=== PATIENT | male | born 1980 | race Caucasian/White ===

== ENCOUNTER 2021-07-14 15:08 | Outpatient (REF) | payer MEDICARE, MEDICAID, SELFPAY ==
[2021-07-14 16:33] LABS: MANUAL DIFF FLAG NO
[2021-07-14 16:39] LABS: Basophils Absolute Auto 0.1 X10*3/uL (0.0-0.2); Basophils Percent Auto 1.6 % (0-2); Eosinophils Percent Auto 12.1 % (0-4); Hematocrit 42.4 % (42.0-52.0); Hemoglobin 13.8 g/dl (14.0-18.0); Imm Gran Abs Auto 0.02 X10*3/uL (0.00-0.03); Imm Gran Pct Auto 0.2 % (0.0-0.4); Lymphocytes Absolute Auto 1.5 X10*3/uL (1.2-4.9); Mean Corpuscular HGB Conc 32.5 g/dl (31.0-36.0); Mean Corpuscular Hemoglobin 26.5 pg (27.0-33.0); Mean Corpuscular Volume 81.5 fL (80.0-98.0); Mean Platelet Volume 9.9 fL (9.4-12.4); Monocytes Absolute Auto 0.5 X10*3/uL (0.1-1.2); Monocytes Percent Auto 6.5 % (2-11); Neutrophils Percent Auto 61.6 % (45-73); Platelet Count 185 X10*3/uL (160-400); Red Cell Distribution Width 15.5 % (11.0-16.0); White Blood Count 8.1 X10*3/uL (4.8-10.8)
[2021-07-14 17:06] LABS: Alanine Aminotransferase 44 U/L (0-40); Albumin Level 4.6 g/dL (3.5-5.0); Alkaline Phosphatase 93 U/L (39-117); Anion Gap 15 (12-20); Aspartate Amino Transferase 26 U/L (5-37); Bilirubin Total 0.5 mg/dL (0.0-1.0); Blood Urea Nitrogen 17 mg/dL (9-16); Calcium 9.8 mg/dL (8.4-10.2); Carbon Dioxide 26 mmol/L (22-29); Chloride 105 mmol/L (96-108); Cholesterol 232 mg/dL; Estimated Glomerular Filt Rate > 60; Glucose Fasting 94 mg/dL (60-99); HDL Cholesterol 35 mg/dL; LDL Cholesterol Calculated 148 mg/dl; Potassium 4.4 mmol/L (3.3-5.1); Sodium 142 mmol/L (135-145); Total Protein 7.6 g/dL (6.5-8.0); Triglycerides 247 mg/dL
[2021-07-14 17:26] LABS: Vitamin D 25-OH Total 22.7 ng/mL (>30)
== END 2021-07-14 15:09 | disposition home or self-care (01) ==
LOC: HO.HMGCLDS 15:08
PROVIDERS: PCP Internal Medicine; Visit Provider Internal Medicine
DX: E66.01 Morbid (severe) obesity due to excess calories (principal); E55.9 Vitamin D deficiency, unspecified
CPT/HCPCS: 36415; 80053; 80061; 82306; 85025

== ENCOUNTER 2022-04-10 10:49 | Outpatient (REF) | payer MEDICARE, MEDICAID, SELFPAY ==
[2022-04-10 14:05] LABS: MANUAL DIFF FLAG NO
[2022-04-10 14:10] LABS: Basophils Absolute Auto 0.1 X10*3/uL (0.0-0.2); Basophils Percent Auto 1.7 % (0-2); Eosinophils Absolute Auto 0.6 X10*3/uL (0.0-0.4); Eosinophils Percent Auto 7.5 % (0-4); Hemoglobin 14.9 g/dl (14.0-18.0); Imm Gran Abs Auto 0.02 X10*3/uL (0.00-0.03); Imm Gran Pct Auto 0.2 % (0.0-0.4); Lymphocytes Absolute Auto 1.8 X10*3/uL (1.2-4.9); Lymphocytes Percent Auto 22.3 % (20-40); Mean Corpuscular HGB Conc 31.7 g/dl (31.0-36.0); Mean Corpuscular Hemoglobin 26.8 pg (27.0-33.0); Mean Corpuscular Volume 84.4 fL (80.0-98.0); Mean Platelet Volume 10.3 fL (9.4-12.4); Monocytes Absolute Auto 0.6 X10*3/uL (0.1-1.2); Monocytes Percent Auto 7.1 % (2-11); Neutrophils Percent Auto 61.2 % (45-73); Platelet Count 227 X10*3/uL (160-400); Red Blood Count 5.57 X10*6/uL (4.60-5.80); Red Cell Distribution Width 14.3 % (11.0-16.0); White Blood Count 8.1 X10*3/uL (4.8-10.8)
[2022-04-10 14:28] LABS: Alanine Aminotransferase 110 U/L (0-40); Alkaline Phosphatase 129 U/L (39-117); Anion Gap 18 (12-20); Aspartate Amino Transferase 61 U/L (5-37); Bilirubin Total 0.6 mg/dL (0.0-1.0); Blood Urea Nitrogen 12 mg/dL (9-16); Calcium 9.8 mg/dL (8.4-10.2); Carbon Dioxide 24 mmol/L (22-29); Chloride 105 mmol/L (96-108); Cholesterol 242 mg/dL; Estimated Glomerular Filt Rate > 60; Glucose Fasting 121 mg/dL (60-99); HDL Cholesterol 40 mg/dL; LDL Cholesterol Calculated 159 mg/dl; Sodium 143 mmol/L (135-145); Total Protein 7.8 g/dL (6.5-8.0); Triglycerides 217 mg/dL
[2022-04-10 14:38] LABS: Vitamin D 25-OH Total 45.2 ng/mL (>30)
== END 2022-04-10 10:50 | disposition home or self-care (01) ==
LOC: HO.HMGCLDS 10:49
PROVIDERS: PCP Internal Medicine; Visit Provider Internal Medicine
DX: E55.9 Vitamin D deficiency, unspecified (principal); E66.01 Morbid (severe) obesity due to excess calories; F43.10 Post-traumatic stress disorder, unspecified; E78.2 Mixed hyperlipidemia
CPT/HCPCS: 36415; 80053; 80061; 82306; 85025

== ENCOUNTER 2023-08-03 11:39 | Outpatient (AMB) | payer MEDICARE, MEDICAID, SELFPAY ==
--- NOTE | 2023-08-03 11:42 | A.OFFPC_ITS ---
Vital Signs 08/03/23 11:43 Height 6 ft 3 in Weight 293 lb BMI 36.6 BP 135/90 H Blood Pressure Location Rt brachial Position Sitting Pulse 100 Pulse Source Pulse Oximeter Pulse Oximetry (%) 97 Oxygen Delivery Method Room Air Intake Visit Reasons: PE and follow up Intake Note: Pt here for annual PE and f/u chronic issues. Allergies environmental allergies Allergy (Intermediate, Verified 08/08/23 20:58) Sneezing Medication List - Last Reconciled 08/03/23 by Ailyn Merlos MD aspirin (Adult Low Dose Aspirin) 81 mg PO DAILY atomoxetine 80 mg PO QAM bupropion HCl SR 100 mg PO QAM [custom liner for above knee prosthesis As directed. custom liner for above knee prosthesis] desonide 0.05% 1 appl topical BID gabapentin 900 mg PO TID Prosthetic socket insert liner, above knee As directed [Right above knee socket As directed NS] sertraline 150 mg PO DAILY Tobacco use date assessed: 08/03/23 Dental Screening Dental Screen Date: 08/03/23 Did you have a dental visit in the last 12 months?: No Did you have a dental problem in the last 6 months where you did not have access to dental care?: No Was dental information given to patient?: No HPI PE and follow up HPI Details 43 year old male presents today for his physical exam. He has history of necrotizing fasciitis right lower extremity in 2019, complicated with septic shock, cardiac arrest ECMO, left leg embolic event with multiple fasciotomies, debridement, embolectomy, requiring AKA on right, with pain in right above the knee amputation stump, currently being followed by [facility] vascular [facility]. Takes gabapentin. His right leg stump has decreased in size, and having some issues with his prosthesis due to the loss of volume in stump, he is interested about a new procedure called osseous integration, which they are now doing in [place]. No current open cuts sores or wounds in right leg stump. He has history of ADD previously was on Ritalin, but unable to tolerate it, states that it made him feel like a zombie now controlled with atomoxeftine, and is on sertraline and bupropion for treatment of his PTSD, currently being followed by Jessica Sotelo and sees a therapist in [place]. Complains of loss of libido and erectile dysfunction. Has a recurrent eczematous rash on lateral aspect of left knee, not improving with use of desonide cream. [facility] Medical History (Updated 08/03/23 @ 12:51 by Ailyn Merlos MD) ADD (attention deficit disorder) Impaired fasting glucose Vitamin D deficiency Mixed dyslipidemia History of necrotizing fasciitis Phantom pain after amputation of lower extremity Open wound of left knee, leg and ankle with tendon involvement Complicated open wound of right thigh Right above-knee amputee History of septic shock PTSD (post-traumatic stress disorder) Morbid obesity Dyshidrotic eczema Surgical History History of fasciotomy Social History Housing: House Patient Tobacco Use Status: Former Tobacco user e-Cigarette/Vaping Use: Never Used service: No Current occupational status: disabled Current occupational exposures/hazards: No Cognitive needs: No Hearing needs: No Vision needs: No Questionnaire PHQ-9 Over the last 2 weeks, how often have you been bothered by any of the following problems? 1. Little interest or pleasure in doing things: several days 2. Feeling down, depressed, or hopeless: several days 3. Trouble falling or staying asleep, or sleeping too much: nearly every day (Due to pain lower extremity) 4. Feeling tired or having little energy: several days 5. Poor appetite or overeating: several days 6. Feeling bad about yourself - or that you are a failure or have let yourself or your family down: several days 7. Trouble concentrating on things, such as reading the newspaper or watching television: nearly every day (Likely due to gabapentin high-dose) 8. Moving or speaking so slowly that other people could have noticed. Or the opposite - being so fidgety or restless that you have been moving around a lot more than usual: not at all 9. Thoughts that you would be better off or of hurting yourself in some way: not at all Total score: 11 Depression Screening Interpretation: Positive (Currently followed by psychiatry and therapist in [place]) Depression Screening Follow-up: Existing condition, In treatment and Community Mental Health Worker F/U Depression Screening Done: Yes 22058 - PHQ-9 Billing: Yes Source: Developed by Drs. Radha Cortes Kurt Kroenke and colleagues, with an educational deshawn from [employer]. Thrive Questionnaire Date Thrive assessed: 08/03/23 I am a: Patient What is your living situation today?: I have a steady place to live Within the past 12 months, did the food you bought not last and you didn't have the money to get more?: Never true Within the past 12 months, did you worry whether your food would run out before you got money to buy more?: Never true Do you have trouble paying for medicines?: No Do you have trouble getting transportation to medical appointments?: No Do you have trouble paying your heating and electricity bill?: No Do you have trouble taking care of your child, family member or friend?: No Do you have trouble with day-to-day activities such as bathing, preparing meals, shopping, managing finances, etc.?: No Are you currently unemployed and looking for a job?: No Are you interested in more education?: No Please select the resources that you would like help with: None Currently or been in a relationship where the following occur: no concerns reported THRIVE Score: 0 AUDIT C Alcohol Use Questionnaire (AUDIT-C) 1. How often do you have a drink containing alcohol?: Never Total Score: 0 SERINA-7 AMB Questionnaire SERINA-7 Date SERINA - 7 assessed: 08/03/23 Feeling nervous, anxious, or on edge: 1 = Several days Not being able to stop or control worryin = Not at all Worrying too much about different things: 1 = Several days Trouble relaxin = Several days Being so restless that it is hard to sit still: 1 = Several days Becoming easily annoyed or irritable: 0 = Not at all Feeling afraid as if something awful might happen: 0 = Not at all Total SERINA-7 score (0-4 normal; 5-9 mild; 10-14 moderate; 15-21 severe): 4 Source: Developed by Drs. Scot Hoff, Pranav Tate and colleagues, with an educational deshawn from [employer]. SERINA-7 Assessment Billing SERINA-7 Assessment Tool: SERINA-7 Assessment 79203 Review of Systems Const Denies body aches, Denies fever(s), Denies headache(s) and Denies weakness Eyes Reports no additional complaints ENT Denies dizziness, Denies headache(s), Denies nasal congestion and Reports disequilibrium (Unsteady gait due to loose right prosthesis) Card Denies chest pain, Denies lightheadedness and Denies dyspnea Resp Denies chest congestion, Denies cough and Denies dyspnea GI Denies abdominal pain, Denies change in bowel habits and Denies heartburn Denies dysuria, Denies urinary frequency and Denies urinary urgency Musc Reports as per HPI Skin/Breast Denies new lesions, Denies rash and Denies sores Neuro Denies dizziness, Denies headache(s), Reports disequilibrium (Unsteady gait due to loose right prosthesis) and Denies weakness Psych Reports as per HPI Endo Reports no additional complaints Elias/Lymph Reports no additional complaints Aller/Immun Reports no additional complaints Physical exam (Primary Care) Vital Signs: Last Vital Signs Pulse 100 08/03/23 11:43 BP 135/90 H 08/03/23 11:43 Pulse Ox 97 08/03/23 11:43 Oxygen Delivery Method Room Air 08/03/23 11:43 BMI result Body Mass Index 36.6 BMI Assessment/Plan discussion: High BMI High, discussed plan: weight reduction, dietary and physical activity Tobacco/Smoking Status: Tobacco use Status Tobacco use date assessed 08/03/23 08/03/23 11:45 Patient Tobacco Use Status Former Tobacco user 08/03/23 11:42 e-Cigarette/Vaping Use Never Used 08/03/23 11:42 PHQ-9: PHQ-9 Score PHQ-9: Total score 11 08/04/23 15:47 Depression Screening Interpretation: Positive (Currently followed by psychiatry and therapist in [place]) Depression Screening Follow-up: Existing condition, In treatment and Community Mental Health Worker F/U Thrive Assessment: Date of Thrive Assessment Date Thrive assessed 08/03/23 08/03/23 11:45 Currently or been in a relationship where the following occur: no concerns reported Const General: comfortable, no acute distress and alert Nutritional Appearance: obese morbidly obese Orientation/consciousness: patient oriented x3 HENMT Mouth: Normal oral and palatal mucosa present and moist mucous membranes Neck Neck: Yes full ROM, Yes no lymphadenopathy and Yes supple Resp Effort & Inspection: normal respiratory effort and able to speak in complete sentences Auscultation: clear to auscultation bilaterally Cardio Other: S1-S2 present regular rate and rhythm GI Other: Normal bowel sounds, soft, nontender, no mass palpated Back/Spine/Pelvis Back: No back tenderness Skin Other: Dry crusted lesion on palms of hands Neuro General: patient oriented x3, gait normal (With aid of right leg prosthesis), moves all extremities, no focal motor deficits and CN's II-XI intact bilaterally Extrem Other: Right AKA, healed surgical scars in right thigh and left lower extremity General: Yes full ROM Psych Appearance: grossly normal and well kempt Mental Status: mental status grossly normal Affect: normal affect Assessment and Plan Assessment & Plan (1) Annual visit for general adult medical examination with abnormal findings: Code(s): Z00.01 - Encounter for general adult medical examination with abnormal findings Plan: Will check appropriate labs. Continue with regular dental visit every 6 months and regular eye exams, at least every 2 years. Take adequate calcium in diet and vitamin-D 3 at 2000 IU per cap once a day, in addition to weight-bearing exercises to help maintain good muscle tone and weight control. Instructed to do self-testicular exam to check for any mass. Referred to gastroenterology clinic for his initial colon cancer screening. Has had COVID vaccines in the past but does not want to get booster, nor is he interested in getting further flu vaccine. Up-to-date with his Tdap (2) PTSD (post-traumatic stress disorder): Code(s): F43.10 - Post-traumatic stress disorder, unspecified Plan: Currently under the care of psychiatrist, taking bupropion and sertraline (3) History of necrotizing fasciitis: Comment: Right lower extremity Code(s): Z87.39 - Personal history of other diseases of the musculoskeletal system and connective tissue Plan: Has right AKA stump, currently was fitting prosthesis due to decreased in volume in his done, interested in a new procedure called osseous integration, which they are now doing in [place], and is currently in talks about this with his vascular surgeon (4) Mixed dyslipidemia: Code(s): E78.2 - Mixed hyperlipidemia Plan: Fasting lipid panel ordered today . Reinforced importance of following a low- cholesterol diet and staying active (5) Impaired fasting glucose: Code(s): R73.01 - Impaired fasting glucose Plan: Your previous fasting blood sugars were elevated above 100 mg/dL. Impaired glucose metabolism increases the risk for developing diabetes mellitus type 2, as well as heart attack and stroke later on. Lifestyle changes promoting weight loss, healthy eating habits, and regular exercise are important, and can prevent the progression to diabetes (6) ADD (attention deficit disorder): Comment: Followed by psychiatry- Jessica Aguilar Code(s): F98.8 - Other specified behavioral and emotional disorders with onset usually occurring in childhood and adolescence Plan: Currently followed by psychiatry, on atomoxetine (7) Eczema: Code(s): L30.9 - Dermatitis, unspecified Qualifiers: Eczema type: unspecified Qualified Code(s): L30.9 - Dermatitis, unspecified Plan: Discontinue desonide cream, prescription sent for fluocinonide 0.05% cream to be applied sparingly to affected area twice a day for no more than 10 days at a time. (8) Encounter for screening for malignant neoplasm of colon: Code(s): Z12.11 - Encounter for screening for malignant neoplasm of colon Plan: Referred to GI Clinic for his initial screening colonoscopy Orders: Orders Hemoglobin and Hematocrit 08/03/23 E78.2 - Mixed hyperlipidemia, F43.10 - Post- traumatic stress disorder, unspecified, F98.8 - Other specified behavioral and emotional disorders with onset usually occurring in childhood and adolescence, R73.01 - Impaired fasting glucose, Z00.01 - Encounter for general adult medical examination with abnormal findings, Z87.39 - Personal history of other diseases of the musculoskeletal system and connective tissue Vitamin D 25-OH Total 08/03/23 E78.2 - Mixed hyperlipidemia, F43.10 - Post- traumatic stress disorder, unspecified, F98.8 - Other specified behavioral and emotional disorders with onset usually occurring in childhood and adolescence, R73.01 - Impaired fasting glucose, Z00.01 - Encounter for general adult medical examination with abnormal findings, Z87.39 - Personal history of other diseases of the musculoskeletal system and connective tissue Testosterone, Free/Total 08/03/23 E78.2 - Mixed hyperlipidemia, F43.10 - Post- traumatic stress disorder, unspecified, F98.8 - Other specified behavioral and emotional disorders with onset usually occurring in childhood and adolescence, R73.01 - Impaired fasting glucose, Z00.01 - Encounter for general adult medical examination with abnormal findings, Z87.39 - Personal history of other diseases of the musculoskeletal system and connective tissue Lipid Panel 08/03/23 E78.2 - Mixed hyperlipidemia, F43.10 - Post-traumatic stress disorder, unspecified, F98.8 - Other specified behavioral and emotional disorders with onset usually occurring in childhood and adolescence, R73.01 - Impaired fasting glucose, Z00.01 - Encounter for general adult medical examination with abnormal findings, Z87.39 - Personal history of other diseases of the musculoskeletal system and connective tissue Basic Metabolic Panel Fasting 08/03/23 E78.2 - Mixed hyperlipidemia, F43.10 - Post-traumatic stress disorder, unspecified, F98.8 - Other specified behavioral and emotional disorders with onset usually occurring in childhood and adolescence, R73.01 - Impaired fasting glucose, Z00.01 - Encounter for general adult medical examination with abnormal findings, Z87.39 - Personal history of other diseases of the musculoskeletal system and connective tissue Aspartate Amino Transferase 08/03/23 E78.2 - Mixed hyperlipidemia, F43.10 - Post-traumatic stress disorder, unspecified, F98.8 - Other specified behavioral and emotional disorders with onset usually occurring in childhood and adolescence, R73.01 - Impaired fasting glucose, Z00.01 - Encounter for general adult medical examination with abnormal findings, Z87.39 - Personal history of other diseases of the musculoskeletal system and connective tissue Alanine Aminotransferase 08/03/23 E78.2 - Mixed hyperlipidemia, F43.10 - Post- traumatic stress disorder, unspecified, F98.8 - Other specified behavioral and emotional disorders with onset usually occurring in childhood and adolescence, R73.01 - Impaired fasting glucose, Z00.01 - Encounter for general adult medical examination with abnormal findings, Z87.39 - Personal history of other diseases of the musculoskeletal system and connective tissue Referrals Gastroenterology Referral Z12.11 - Encounter for screening for malignant neoplasm of colon Medications: New fluocinonide 0.05% 1 appl topical BID 10 days 30 grams 0RF L30.9 - Dermatitis, unspecified Coding Level of Care Code Est Pt Prev Care 40-64y(10229) Diagnoses Annual visit for general adult medical examination with abnormal findings Z00.01 PTSD (post-traumatic stress disorder) F43.10 History of necrotizing fasciitis Z87.39 Mixed dyslipidemia E78.2 Impaired fasting glucose R73.01 ADD (attention deficit disorder) F98.8 Eczema, unspecified type L30.9 Eczema type: unspecified Encounter for screening for malignant neoplasm of colon Z12.11 Additional Codes SERINA-7 Assessment Billing - SERINA-7 Assessment Tool: SERINA-7 Assessment 30384 ([id number])
[2023-08-03 11:43] VITALS: BP 135/90; PULSE 100; O2SAT 97; BMI 36.6
== END 2023-08-03 12:39 | disposition home or self-care (01) ==
PROVIDERS: PCP Internal Medicine; Visit Provider Internal Medicine
DX: Z00.00 Encounter for general adult medical examination without abnormal findings (principal); F43.10 Post-traumatic stress disorder, unspecified; Z87.39 Personal history of other diseases of the musculoskeletal system and connective tissue; Z89.611 Acquired absence of right leg above knee; E78.2 Mixed hyperlipidemia; R73.01 Impaired fasting glucose; F98.8 Other specified behavioral and emotional disorders with onset usually occurring in childhood and adolescence; L30.9 Dermatitis, unspecified; Z12.11 Encounter for screening for malignant neoplasm of colon
CPT/HCPCS: 99396

== ENCOUNTER 2023-08-03 12:40 | Outpatient (REF) | payer MEDICARE, MEDICAID, SELFPAY ==
[2023-08-03 16:12] LABS: Hematocrit 44.7 % (42.0-52.0); Hemoglobin 14.8 g/dl (14.0-18.0)
[2023-08-03 16:18] LABS: Estimated Average Glucose 111 mg/dL; Hemoglobin A1c % 5.5 % (<6.0)
[2023-08-03 16:53] LABS: Alanine Aminotransferase 37 U/L (0-40); Anion Gap 14 (12-20); Aspartate Amino Transferase 27 U/L (5-37); Blood Urea Nitrogen 15 mg/dL (9-16); Carbon Dioxide 26 mmol/L (22-29); Chloride 107 mmol/L (96-108); Cholesterol 237 mg/dL (<200); Estimated Glomerular Filt Rate > 60; Glucose Fasting 99 mg/dL (60-99); HDL Cholesterol 45 mg/dL (>40); LDL Cholesterol Calculated 151 mg/dL (<100); Potassium 3.9 mmol/L (3.3-5.1); Sodium 143 mmol/L (135-145); Triglycerides 207 mg/dL (<150)
[2023-08-03 17:01] LABS: Vitamin D 25-OH Total 37.3 ng/mL (>30)
[2023-08-08 14:33] LABS: Testosterone, Free 46.1 pg/mL (35.0-155.0); Testosterone, Total 262 ng/dL (250-1100)
== END 2023-08-03 12:41 | disposition home or self-care (01) ==
LOC: HO.HMGCLDS 12:40
PROVIDERS: PCP Internal Medicine; Visit Provider Internal Medicine
DX: Z00.01 Encounter for general adult medical examination with abnormal findings (principal); E66.01 Morbid (severe) obesity due to excess calories; R73.01 Impaired fasting glucose; E78.2 Mixed hyperlipidemia; F43.10 Post-traumatic stress disorder, unspecified; F98.8 Other specified behavioral and emotional disorders with onset usually occurring in childhood and adolescence; Z13.220 Encounter for screening for lipoid disorders; Z87.39 Personal history of other diseases of the musculoskeletal system and connective tissue
CPT/HCPCS: 36415; 80048; 80061; 82306; 83036; 84402; 84403; 84450; 84460; 85014; 85018

== ENCOUNTER 2023-11-17 09:17 | Outpatient (AMB) | payer MEDICARE, MEDICAID, SELFPAY ==
[2023-11-17 09:33] VITALS: BP 128/86; PULSE 96; O2SAT 97; BMI 38.4
--- NOTE | 2023-11-17 09:33 | MHC.PC.OV ---
Vital Signs 11/17/23 09:33 Height 6 ft 3 in Weight 307 lb BMI 38.4 BP 128/86 Blood Pressure Location Lt brachial Position Sitting Pulse 96 Pulse Source Pulse Oximeter Pulse Oximetry (%) 97 Oxygen Delivery Method Room Air Intake Visit Reasons: PE Intake Note: Pt is here today for his PE Allergies environmental allergies Allergy (Intermediate, Verified 11/17/23 10:04) Sneezing Medication List - Last Reconciled 11/17/23 by Ailyn Merlos MD aspirin (Adult Low Dose Aspirin) 81 mg PO DAILY atomoxetine 80 mg PO QAM bupropion HCl SR 100 mg PO QAM [custom liner for above knee prosthesis As directed. custom liner for above knee prosthesis] desonide 0.05% 1 appl topical BID fluocinonide 0.05% 1 appl topical BID 10 days gabapentin 900 mg PO TID loratadine (Allergy Relief (loratadine)) 10 mg PO DAILY PRN Prosthetic socket insert liner, above knee As directed [Right above knee socket As directed NS] sertraline 150 mg PO DAILY triamcinolone acetonide 0.5% 1 appl topical DAILY 10 days Tobacco use date assessed: 11/17/23 Dental Screening Dental Screen Date: 11/17/23 Did you have a dental visit in the last 12 months?: No Did you have a dental problem in the last 6 months where you did not have access to dental care?: No Was dental information given to patient?: Patient has dentist HPI PE HPI Details 43-year-old male with past medical history of necrotizing fasciitis right lower extremity in 2019, complicated with septic shock, cardiac arrest ECMO, left leg embolic event with multiple fasciotomies, debridement, embolectomy, requiring AKA on right, with pain in right above the knee amputation stump, currently being followed by [facility] vascular [facility]. Takes gabapentin. No current open cuts sores or wounds in right leg stump. He has history of ADD previously was on Ritalin, but unable to tolerate it, states that it made him feel like a zombie . Now controlled with atomoxeftine, and is on sertraline and bupropion for treatment of his PTSD, currently being followed by Jessica Sotelo and sees a therapist in [place]. [facility] Medical History (Updated 11/17/23 @ 10:24 by Ailyn Merlos MD) Loss of libido ADD (attention deficit disorder) Impaired fasting glucose Vitamin D deficiency Mixed dyslipidemia History of necrotizing fasciitis Phantom pain after amputation of lower extremity Open wound of left knee, leg and ankle with tendon involvement Complicated open wound of right thigh Right above-knee amputee History of septic shock PTSD (post-traumatic stress disorder) Morbid obesity Dyshidrotic eczema Surgical History History of fasciotomy Social History Housing: House Patient Tobacco Use Status: Former Tobacco user e-Cigarette/Vaping Use: Never Used service: No Current occupational status: disabled Current occupational exposures/hazards: No Cognitive needs: No Hearing needs: No Vision needs: No Questionnaire PHQ-9 Over the last 2 weeks, how often have you been bothered by any of the following problems? 1. Little interest or pleasure in doing things: not at all 2. Feeling down, depressed, or hopeless: several days 3. Trouble falling or staying asleep, or sleeping too much: several days 4. Feeling tired or having little energy: several days 5. Poor appetite or overeating: not at all 6. Feeling bad about yourself - or that you are a failure or have let yourself or your family down: several days 7. Trouble concentrating on things, such as reading the newspaper or watching television: several days 8. Moving or speaking so slowly that other people could have noticed. Or the opposite - being so fidgety or restless that you have been moving around a lot more than usual: not at all 9. Thoughts that you would be better off or of hurting yourself in some way: not at all Total score: 5 Depression Screening Interpretation: Positive Depression Screening Follow-up: Existing condition and In treatment Depression Screening Done: Yes Source: Developed by Drs. Scot Hoff, Radha Sequeira, Pranav Macdonald and colleagues, with an educational deshawn from [employer]. Thrive Questionnaire Date Thrive assessed: 11/17/23 I am a: Patient What is your living situation today?: I have a steady place to live Within the past 12 months, did the food you bought not last and you didn't have the money to get more?: Never true Within the past 12 months, did you worry whether your food would run out before you got money to buy more?: Never true Do you have trouble paying for medicines?: No Do you have trouble getting transportation to medical appointments?: No Do you have trouble paying your heating and electricity bill?: No Do you have trouble taking care of your child, family member or friend?: No Do you have trouble with day-to-day activities such as bathing, preparing meals, shopping, managing finances, etc.?: Yes Are you interested in more education?: I choose not to answer this question Please select the resources that you would like help with: None Currently or been in a relationship where the following occur: No concerns reported THRIVE Score: 0 AUDIT C Alcohol Use Questionnaire (AUDIT-C) 1. How often do you have a drink containing alcohol?: Never 3. How often do you have six or more drinks on one occasion?: Never Total Score: 0 SERINA-7 AMB Questionnaire SERINA-7 Date SERINA - 7 assessed: 11/17/23 Feeling nervous, anxious, or on edge: 1 = Several days Not being able to stop or control worryin = Several days Worrying too much about different things: 2 = More than half the days Trouble relaxin = Several days Being so restless that it is hard to sit still: 0 = Not at all Becoming easily annoyed or irritable: 0 = Not at all Feeling afraid as if something awful might happen: 0 = Not at all Total SERINA-7 score (0-4 normal; 5-9 mild; 10-14 moderate; 15-21 severe): 5 Source: Developed by Drs. Scot Hoff, Radha Sequeira, Pranav Macdonald and colleagues, with an educational deshawn from [employer]. SERINA-7 Assessment Billing SERINA-7 Assessment Tool: SERINA-7 Assessment 44753 Review of Systems Const Denies body aches, Denies fever(s), Denies headache(s) and Denies weakness Eyes Reports no additional complaints ENT Denies dizziness, Denies headache(s) and Denies nasal congestion Card Denies chest pain, Denies lightheadedness and Denies dyspnea Resp Denies chest congestion, Denies cough and Denies dyspnea GI Denies abdominal pain, Denies change in bowel habits and Denies heartburn Denies dysuria, Denies urinary frequency and Denies urinary urgency Musc Reports as per HPI Skin/Breast Denies new lesions, Denies rash and Denies sores Neuro Denies dizziness, Denies headache(s) and Denies weakness Psych Reports as per HPI Endo Reports no additional complaints Elias/Lymph Reports no additional complaints Aller/Immun Reports no additional complaints Physical exam (Primary Care) Vital Signs: Last Vital Signs Pulse 96 11/17/23 09:33 BP 128/86 11/17/23 09:33 Pulse Ox 97 11/17/23 09:33 Oxygen Delivery Method Room Air 11/17/23 09:33 BMI result Body Mass Index 38.4 BMI Assessment/Plan discussion: High BMI High, discussed plan: weight reduction, dietary and physical activity Tobacco/Smoking Status: Tobacco use Status Tobacco use date assessed 11/17/23 11/17/23 09:47 Patient Tobacco Use Status Former Tobacco user 11/17/23 09:35 e-Cigarette/Vaping Use Never Used 11/17/23 09:35 PHQ-9: PHQ-9 Score PHQ-9: Total score 5 11/17/23 10:26 Depression Screening Interpretation: Positive Depression Screening Follow-up: Existing condition and In treatment Thrive Assessment: Date of Thrive Assessment Date Thrive assessed 11/17/23 11/17/23 09:47 Currently or been in a relationship where the following occur: No concerns reported Advance Care Planning discussion: Completed/Scanned Date of discussion: 11/17/23 Who was present: Patient Forms completed: Health Care Proxy Time spent: 16-45 minutes Actual minutes spent: 16 Const General: comfortable, no acute distress and alert Nutritional Appearance: obese morbidly obese Orientation/consciousness: patient oriented x3 HENMT Mouth: Normal oral and palatal mucosa present and moist mucous membranes Neck Neck: Yes full ROM, Yes no lymphadenopathy and Yes supple Resp Effort & Inspection: normal respiratory effort and able to speak in complete sentences Auscultation: clear to auscultation bilaterally Cardio Other: S1-S2 present regular rate and rhythm GI Other: Normal bowel sounds, soft, nontender, no mass palpated Back/Spine/Pelvis Back: No back tenderness Neuro General: patient oriented x3, gait normal (With aid of right leg prosthesis), moves all extremities, no focal motor deficits and CN's II-XI intact bilaterally Extrem Other: Right AKA, healed surgical scars in right thigh and left lower extremity General: Yes full ROM Psych Appearance: grossly normal and well kempt Mental Status: mental status grossly normal Affect: normal affect Results Reviewed Results Reviewed: Laboratory Tests 08/03/23 12:45 Hgb 14.8 Hct 44.7 Name: Reginald Tripp Age/Sex: 43/M : 1980 Unit#: [id number] Attend Dr: Ailyn Merlos MD Re08/03/23 Status: DEP REF Location: [facility] Disch: SPEC : [id number] MARCOS: 08/03/23-1425 STATUS: COMP REQ : [id number] RECD: 08/03/23-[address]: Ailyn Merlos MD COMP: 08/03/23-170 ENTERED: 08/03/23-[address]: ORDERED: Met Prof Fast, AST, ALT, Lipid Panel, Vitamin D 25-OH Test Result Flag Reference Sodium 143 135-145 mmol/L Potassium 3.9 3.3-5.1 mmol/L CL 107 96-108 mmol/L CO2 26 22-29 mmol/L Gap 14 12-20 BUN 15 9-16 mg/dL Creat 1.18 0.5-1.4 mg/dL EGFR > 60 NOTE: For -[place] individuals, multiply the result by 1.210. Chronic Kidney Disease: Estimated GFR < 60 mL/min/1.73m2 Severe Kidney Disease: Estimated GFR < 15 mL/min/1.73m2 FBS 99 60-99 mg/dL CA 10.0 8.4-10.2 mg/dL AST (GOT) 27 5-37 U/L ALT (GPT) 37 0-40 U/L Triglyceride 207 H <150 mg/dL Desirable Triglyceride: less than 150 mg/dL Borderline High Triglyceride 150-199 mg/dL High Triglyceride: 200-499 mg/dL Very High Triglyceride: greater than or equal to 5OO mg/dL Cholesterol 237 H <200 mg/dL Desirable Cholesterol: less than 200 mg/dL Borderline High Cholesterol: 200-239 mg/dL High Cholesterol: greater than 239 mg/dL LDL Calculated 151 H <100 mg/dL Desirable LDL: less than 100 mg/dL Near Optimal/Above Optimal LDL: 110-129 mg/dL Borderline High LDL: 130-159 mg/dL High LDL: 160-189 mg/dL Very High LDL: greater than or equal to 190 mg/dL HDL 45 >40 mg/dL Desirable HDL: greater than 40 mg/dL Note: This HDL assay may give artificially low results in patients with liver disease. Vit D 25-OH Tot 37.3 >30 ng/mL Health Based Reference Values* < 20 ng/mL Deficient 20-30 ng/mL Insufficient > 30 ng/mL Sufficient *Kimberli QUIÑONES. N Engl J Med. 2007;357:266-280 Care must be taken in interpreting Vitamin D results from different laboratories and methodologies. Published data demonstrated that results from patients undergoing hemodialysis may show a negative bias when tested with various automated 25-OH vitamin D assays when compared to LC-MS/MS. When testing samples from patients whose predominant form of Vitamin D is Vitamin D2, such as patients receiving Vitamin D2 supplementation, results that are subtherapeutic should be confirmed with another method such as LC-MS/MS. Assessment and Plan Assessment & Plan (1) Annual visit for general adult medical examination with abnormal findings: Code(s): Z00.01 - Encounter for general adult medical examination with abnormal findings Plan: Will check appropriate labs. Recommended dental visit every 6 months and regular eye exams, at least every 2 years. Take adequate calcium in diet and vitamin-D 3 at 2000 IU per cap once a day, in addition to weight-bearing exercises to help maintain good muscle tone and weight control. Instructed to do self-testicular exam check for any mass. (2) Morbid obesity: Code(s): E66.01 - Morbid (severe) obesity due to excess calories Plan: Patient interested in trying the weight loss medication, advised to call his insurance, and find out what is covered. In the meantime continue with doing regular weight-bearing exercise, adhering to healthy eating habits (3) PTSD (post-traumatic stress disorder): Code(s): F43.10 - Post-traumatic stress disorder, unspecified Plan: Followed by psychiatry currently on sertraline (4) Right above-knee amputee: Code(s): Z89.611 - Acquired absence of right leg above knee (5) Mixed dyslipidemia: Code(s): E78.2 - Mixed hyperlipidemia Plan: Reviewed last fasting lipids , which showed elevated LDL cholesterol and triglycerides. Reinforced importance of following a low-cholesterol diet, avoiding junk food, and getting regular exercise. repeat fasting lipid level ordered (6) Impaired fasting glucose: Code(s): R73.01 - Impaired fasting glucose Plan: Your previous fasting blood sugars were elevated above 100 mg/dL. Impaired glucose metabolism increases the risk for developing diabetes mellitus type 2, as well as heart attack and stroke later on. Lifestyle changes that promotes weight loss, healthy eating habits, and regular exercise are important, and can prevent the progression to diabetes (7) ADD (attention deficit disorder): Comment: Followed by psychiatry- Jessica Aguilar Code(s): F98.8 - Other specified behavioral and emotional disorders with onset usually occurring in childhood and adolescence Plan: Currently followed by psychiatry, controlled on atomoxetine (8) Encounter for counseling regarding advance directives: Code(s): Z71.89 - Other specified counseling Plan: Initiated the conversation about Advanced Directives. Advanced Directives help patients prepare for current and future decisions about their medical treatment and place of care. Discussed with patient that it is a process where a patients current condition and prognosis are reviewed, their wishes for information regarding their illness are elicited, and likely medical dilemmas are presented and options discussed. Healthcare proxy form completed today. The form can be amended as needed, reviewed yearly and make changes as needed (9) Loss of libido: Code(s): R68.82 - Decreased libido Plan: Ordered total and free testosterone level and comprehensive metabolic panel as well as TSH and free T4 Orders: Orders Lipid Panel 11/17/23 E66.01 - Morbid (severe) obesity due to excess calories, E78.2 - Mixed hyperlipidemia, F43.10 - Post-traumatic stress disorder, unspecified, F98.8 - Other specified behavioral and emotional disorders with onset usually occurring in childhood and adolescence, R73.01 - Impaired fasting glucose, Z00.01 - Encounter for general adult medical examination with abnormal findings, Z71.89 - Other specified counseling, Z87.39 - Personal history of other diseases of the musculoskeletal system and connective tissue, Z89.611 - Acquired absence of right leg above knee Vitamin D 25-OH Total 11/17/23 E66.01 - Morbid (severe) obesity due to excess calories, E78.2 - Mixed hyperlipidemia, F43.10 - Post-traumatic stress disorder, unspecified, F98.8 - Other specified behavioral and emotional disorders with onset usually occurring in childhood and adolescence, R73.01 - Impaired fasting glucose, Z00.01 - Encounter for general adult medical examination with abnormal findings, Z71.89 - Other specified counseling, Z87.39 - Personal history of other diseases of the musculoskeletal system and connective tissue, Z89.611 - Acquired absence of right leg above knee Complete Blood Count Auto Diff 11/17/23 E66.01 - Morbid (severe) obesity due to excess calories, E78.2 - Mixed hyperlipidemia, F43.10 - Post-traumatic stress disorder, unspecified, F98.8 - Other specified behavioral and emotional disorders with onset usually occurring in childhood and adolescence, R73.01 - Impaired fasting glucose, Z00.01 - Encounter for general adult medical examination with abnormal findings, Z71.89 - Other specified counseling, Z87.39 - Personal history of other diseases of the musculoskeletal system and connective tissue, Z89.611 - Acquired absence of right leg above knee Comprehensive [place]. Panel Fast 11/17/23 E66.01 - Morbid (severe) obesity due to excess calories, E78.2 - Mixed hyperlipidemia, F43.10 - Post-traumatic stress disorder, unspecified, F98.8 - Other specified behavioral and emotional disorders with onset usually occurring in childhood and adolescence, R73.01 - Impaired fasting glucose, Z00.01 - Encounter for general adult medical examination with abnormal findings, Z71.89 - Other specified counseling, Z87.39 - Personal history of other diseases of the musculoskeletal system and connective tissue, Z89.611 - Acquired absence of right leg above knee Testosterone, Free/Total 11/17/23 E66.01 - Morbid (severe) obesity due to excess calories, E78.2 - Mixed hyperlipidemia, F43.10 - Post-traumatic stress disorder, unspecified, F98.8 - Other specified behavioral and emotional disorders with onset usually occurring in childhood and adolescence, R73.01 - Impaired fasting glucose, Z00.01 - Encounter for general adult medical examination with abnormal findings, Z71.89 - Other specified counseling, Z87.39 - Personal history of other diseases of the musculoskeletal system and connective tissue, Z89.611 - Acquired absence of right leg above knee TSH reflex Free T4 11/17/23 E66.01 - Morbid (severe) obesity due to excess calories, E78.2 - Mixed hyperlipidemia, F43.10 - Post-traumatic stress disorder, unspecified, F98.8 - Other specified behavioral and emotional disorders with onset usually occurring in childhood and adolescence, R73.01 - Impaired fasting glucose, Z00.01 - Encounter for general adult medical examination with abnormal findings, Z71.89 - Other specified counseling, Z87.39 - Personal history of other diseases of the musculoskeletal system and connective tissue, Z89.611 - Acquired absence of right leg above knee Coding Level of Care Code Est Pt Prev Care 40-64y(94079) Diagnoses Annual visit for general adult medical examination with abnormal findings Z00.01 Morbid obesity E66.01 PTSD (post-traumatic stress disorder) F43.10 Right above-knee amputee Z89.611 Mixed dyslipidemia E78.2 Impaired fasting glucose R73.01 ADD (attention deficit disorder) F98.8 Encounter for counseling regarding advance directives Z71.89 Loss of libido R68.82 Additional Codes Vital Signs *Quality* - Advance Care Planning discussion: Completed/Scanned ([id number]) Vital Signs *Quality* - Time spent: 16-45 minutes ([id number]) SERINA-7 Assessment Billing - SERINA-7 Assessment Tool: SERINA-7 Assessment 84906 ([id number])
== END 2023-11-17 10:33 | disposition home or self-care (01) ==
PROVIDERS: PCP Internal Medicine; Visit Provider Internal Medicine
DX: Z00.00 Encounter for general adult medical examination without abnormal findings (principal); E66.01 Morbid (severe) obesity due to excess calories; Z89.611 Acquired absence of right leg above knee; Z68.38 Body mass index [BMI] 38.0-38.9, adult; F43.10 Post-traumatic stress disorder, unspecified; E78.2 Mixed hyperlipidemia; R73.01 Impaired fasting glucose; F98.8 Other specified behavioral and emotional disorders with onset usually occurring in childhood and adolescence; Z71.89 Other specified counseling; R68.82 Decreased libido

== ENCOUNTER → 2023-11-17 09:17 | Outpatient (BNVA) | payer MEDICARE, MEDICAID, SELFPAY | PROVIDERS: PCP Internal Medicine; Visit Provider Internal Medicine ==

== ENCOUNTER 2023-11-17 10:26 | Outpatient (REF) | payer MEDICARE, MEDICAID, SELFPAY ==
[2023-11-17 13:12] LABS: MANUAL DIFF FLAG NO
[2023-11-17 13:17] LABS: Basophils Absolute Auto 0.1 X10*3/uL (0.0-0.2); Basophils Percent Auto 1.7 % (0-2); Eosinophils Absolute Auto 0.5 X10*3/uL (0.0-0.4); Eosinophils Percent Auto 8.2 % (0-4); Hematocrit 42.9 % (42.0-52.0); Imm Gran Abs Auto 0.03 X10*3/uL (0.00-0.03); Imm Gran Pct Auto 0.5 % (0.0-0.4); Lymphocytes Absolute Auto 1.2 X10*3/uL (1.2-4.9); Lymphocytes Percent Auto 18.9 % (20-40); Mean Corpuscular HGB Conc 32.6 g/dl (31.0-36.0); Mean Corpuscular Hemoglobin 27.8 pg (27.0-33.0); Mean Corpuscular Volume 85.1 fL (80.0-98.0); Mean Platelet Volume 10.3 fL (9.4-12.4); Monocytes Absolute Auto 0.5 X10*3/uL (0.1-1.2); Monocytes Percent Auto 7.4 % (2-11); Neutrophils Percent Auto 63.3 % (45-73); Platelet Count 168 X10*3/uL (160-400); Red Blood Count 5.04 X10*6/uL (4.60-5.80); Red Cell Distribution Width 14.1 % (11.0-16.0); White Blood Count 6.3 X10*3/uL (4.8-10.8)
[2023-11-17 14:31] LABS: TSH reflex Free T4 1.48 uIU/mL (0.32-4.0); Vitamin D 25-OH Total 29.9 ng/mL (>30)
[2023-11-17 14:32] LABS: Anion Gap 13 (12-20)
[2023-11-17 14:37] LABS: Alanine Aminotransferase 52 U/L (0-40); Albumin Level 4.6 g/dL (3.5-5.0); Alkaline Phosphatase 87 U/L (39-117); Aspartate Amino Transferase 34 U/L (5-37); Bilirubin Total 0.5 mg/dL (0.0-1.0); Blood Urea Nitrogen 13 mg/dL (9-16); Calcium 9.7 mg/dL (8.4-10.2); Carbon Dioxide 26 mmol/L (22-29); Chloride 106 mmol/L (96-108); Cholesterol 186 mg/dL (<200); Estimated Glomerular Filt Rate > 60; Glucose Fasting 114 mg/dL (60-99); HDL Cholesterol 39 mg/dL (>40); LDL Cholesterol Calculated 94 mg/dL (<100); Potassium 4.3 mmol/L (3.3-5.1); Sodium 141 mmol/L (135-145); Total Protein 7.6 g/dL (6.5-8.0); Triglycerides 267 mg/dL (<150)
[2023-11-22 13:57] LABS: Testosterone, Total 175 ng/dL (250-1100)
== END 2023-11-17 10:27 | disposition home or self-care (01) ==
LOC: HO.HMGCLDS 10:26
PROVIDERS: PCP Internal Medicine; Visit Provider Internal Medicine
DX: Z00.01 Encounter for general adult medical examination with abnormal findings (principal); E66.01 Morbid (severe) obesity due to excess calories; E78.2 Mixed hyperlipidemia; R73.01 Impaired fasting glucose; F43.10 Post-traumatic stress disorder, unspecified; F98.8 Other specified behavioral and emotional disorders with onset usually occurring in childhood and adolescence; R68.82 Decreased libido; Z71.89 Other specified counseling; Z89.611 Acquired absence of right leg above knee; Z87.39 Personal history of other diseases of the musculoskeletal system and connective tissue; Z68.38 Body mass index [BMI] 38.0-38.9, adult
CPT/HCPCS: 36415; 80053; 80061; 82306; 84402; 84403; 84443; 85025; 96127; 99396; 99497

== ENCOUNTER 2023-11-24 13:44 | Outpatient (AMB) | payer MEDICARE, MEDICAID, SELFPAY ==
[2023-11-24 13:49] VITALS: BP 138/98; PULSE 110; O2SAT 96; BMI 38.6
--- NOTE | 2023-11-24 13:49 | A.OFFVIS_ITS ---
Vital Signs 11/24/23 13:49 Height 6 ft 3 in Weight 308 lb 10.354 oz BMI 38.6 BP 138/98 H Blood Pressure Location Rt brachial Position Sitting Pulse 110 H Pulse Source Pulse Oximeter Pulse Oximetry (%) 96 Oxygen Delivery Method Room Air Intake Visit Reasons: Colonoscopy Screening Intake Note: Reginald presents in office today for a scheduled colo consult. CC; This is an initial / routine screening. Pt is a RLE amputee and a diabetic. Pt reports that their PCP recommended based off of PMHx and age concerns. Pt denies any GI concerns or sx. Pt denies any pertinent family hx. Call Specialist Required: No Allergies environmental allergies Allergy (Intermediate, Verified 11/24/23 13:50) Sneezing HPI HPI Colonoscopy Screening: Details: 43 year old? male with past medical history of ADD, hyperlipidemia, right above knee amputee status post necrotizing fasciitis in to my right lower extremity is here today for pre colonoscopy screening.? Patient was sent to us by his PCP.? This is his first colonoscopy screening.? Patient denies any gastrointestinal symptoms in the past or at present.? Denies any personal or family history of gastrointestinal disease, colon polyps, or CRC.? Denies history of difficulty with sedation or anesthesia in the past.? Negative for history of sleep apnea.? Denies any history of cardiac, renal, pulmonary, or hepatic disease.?? No history of infectious? diseases like hepatitis A, B, C, HIV or tuberculosis.? Patient is on low-dose aspirin [facility] Medical History Loss of libido ADD (attention deficit disorder) Impaired fasting glucose Vitamin D deficiency Mixed dyslipidemia History of necrotizing fasciitis Phantom pain after amputation of lower extremity Open wound of left knee, leg and ankle with tendon involvement Complicated open wound of right thigh Right above-knee amputee History of septic shock PTSD (post-traumatic stress disorder) Morbid obesity Dyshidrotic eczema Surgical History History of fasciotomy Social History Housing: House Patient Tobacco Use Status: Former Tobacco user e-Cigarette/Vaping Use: Never Used service: No Current occupational status: disabled Current occupational exposures/hazards: No Cognitive needs: No Hearing needs: No Vision needs: No Review of Systems Const Denies weight gain and Denies weight loss ENT Reports no additional complaints, Denies dysphagia and Denies odynophagia Card Reports no additional complaints Resp Reports no additional complaints GI Denies abdominal pain, Denies belching, Denies melena, Denies bloating, Denies change in bowel habits, Denies dysphagia, Denies excessive flatus, Denies dyspepsia, Denies heartburn, Denies diarrhea, Denies loose stools, Denies nausea, Denies odynophagia and Denies vomiting Reports no additional complaints Musc Reports no additional complaints Neuro Reports no additional complaints Psych Reports no additional complaints Endo Reports no additional complaints Physical Exam Vital Signs: Last Vital Signs Pulse 110 H 11/24/23 13:49 BP 138/98 H 11/24/23 13:49 Pulse Ox 96 11/24/23 13:49 Oxygen Delivery Method Room Air 11/24/23 13:49 BMI result Body Mass Index 38.6 Const General: healthy appearing, no acute distress and well developed Nutritional Appearance: well nourished Orientation/consciousness: patient oriented x3 Resp Effort & Inspection: normal respiratory effort, able to speak in complete sentences, no tracheal deviation and symmetric chest movement Auscultation: clear to auscultation bilaterally Cardio Rate: regular rate GI Inspection: Yes normal to inspection and No distended Palpation (GI): Soft to palpation, not firm, nontender and No hepatosplenomegaly present Auscultation: normal bowel sounds General: Yes no CVA tenderness Back/Spine/Pelvis Back: no CVA tenderness Skin General skin exam: elasticity normal, turgor normal and dry skin Neuro General: patient oriented x3 Extrem Other: R AKA Psych Appearance: grossly normal Mental Status: mental status grossly normal Assessment & Plan Assessment & Plan (1) Encounter for screening for malignant neoplasm of colon: Code(s): Z12.11 - Encounter for screening for malignant neoplasm of colon Plan Patient denies any GI, cardiac or respiratory symptoms.? Denies any issues with anesthesia in the past.? Denies any history of sleep apnea.? No history infecti ous diseases in the past or present.? Not on any anticoagulation therapy.? No family or personal history of colon cancer or polyps.? Patient denies melena, hematochezia, unintentional weight loss or ribbon like stools.? Discussed at length the pre-procedure,? prep, diet & medications as well as what to expect prior, during and after the procedure.?? Stressed the importance of good bowel prep.? Recommended the use of Vaseline or Calmoseptine OTC & baby wipes with bowel movements to promote comfort.? ?Patient verbalizes understanding and agrees to plan of care.? Corby was given the opportunity to ask questions and all questions answered.? We will see him after the procedure.? Medications: New bisacodyl (Dulcolax (bisacodyl)) take 4 tabs at noon the day before your colonoscopy 20 mg (4 x 5 mg) PO ONCE 1 day 4 tabs 0RF Z12.11 - Encounter for screening for malignant neoplasm of col on polyethylene glycol 3350 (Miralax) As directed by gastroenterology department at [facility] 238 grams PO ONCE 238 grams 0RF Z12.11 - Encounter for screening for malignant neoplasm of colon Coding Level of Care Code New Pt Level 3 (85947) Diagnoses Encounter for screening for malignant neoplasm of colon Z12.11 Time Spent (min) 40 Comment 30 minutes spent with patient and additional 10 minutes spent reviewing his records
== END 2023-11-24 14:53 | disposition home or self-care (01) ==
PROVIDERS: PCP Internal Medicine; Visit Provider Nurse Practitioner Family
DX: Z01.818 Encounter for other preprocedural examination (principal); Z12.11 Encounter for screening for malignant neoplasm of colon
CPT/HCPCS: 99024

== ENCOUNTER → 2023-11-24 13:44 | Outpatient (BNVA) | payer MEDICARE, MEDICAID, SELFPAY | PROVIDERS: PCP Internal Medicine; Visit Provider Nurse Practitioner Family | DX: Z12.11 Encounter for screening for malignant neoplasm of colon (principal) | CPT/HCPCS: 99212 ==

== ENCOUNTER 2023-12-03 10:39 | Outpatient (REF) | payer MEDICARE, MEDICAID, SELFPAY ==
[2023-12-03 13:49] LABS: Influenza A PCR NEGATIVE (Negative); Influenza B PCR NEGATIVE (Negative); Resp Syncy Virus RNA Qual PCR NEGATIVE (Negative); SARS COV2 PCR INHOUSE NEGATIVE (Negative)
== END 2023-12-03 10:40 | disposition home or self-care (01) ==
LOC: HO.LAB 10:39
PROVIDERS: PCP Internal Medicine; Visit Provider Physician Assistant
DX: J06.9 Acute upper respiratory infection, unspecified (principal); J45.901 Unspecified asthma with (acute) exacerbation
CPT/HCPCS: 0241U; 94640; 99212

== ENCOUNTER 2023-12-03 10:39 | Outpatient (AMB) | payer MEDICARE, MEDICAID, SELFPAY ==
--- NOTE | 2023-12-03 10:43 | AM.OFFWIN_ITS ---
Intake Vital Signs 12/03/23 10:44 Height 6 ft 3 in Weight 305 lb BMI 38.1 BP 130/90 H Blood Pressure Location Rt brachial Position Sitting Pulse 102 H Pulse Source Pulse Oximeter Temp 98.6 F Temp Source Oral Pulse Oximetry (%) 93 Oxygen Delivery Method Room Air Intake Visit Reasons: EP Asthma, Congestion Intake Note: Patient here for congestion, cough, Asthma flare up that has been present for about 2 days Patient Tobacco Use Status: Former Tobacco user Allergies environmental allergies Allergy (Intermediate, Verified 12/03/23 10:44) Sneezing Do you need a note to return to daycare/school/sports/work: No HPI HPI Comments History of Present Illness Details Patient is a 43-year-old male with a past medical history of asthma complaining of 2 days of shortness of breath, dry cough, sinus pain and head congestion. He denies any fevers, ear pain, headaches. Denies any sick contacts. He tells me he did test for COVID at home 2 days ago and it was negative. He has been using cough drops to try to stop his cough. He does not currently have any asthma medications at home and he tells me the last time he used an inhaler or nebulizer machine was many many years ago. [facility] Medical History Loss of libido ADD (attention deficit disorder) Impaired fasting glucose Vitamin D deficiency Mixed dyslipidemia History of necrotizing fasciitis Phantom pain after amputation of lower extremity Open wound of left knee, leg and ankle with tendon involvement Complicated open wound of right thigh Right above-knee amputee History of septic shock PTSD (post-traumatic stress disorder) Morbid obesity Dyshidrotic eczema Surgical History History of fasciotomy Social History Housing: House Patient Tobacco Use Status: Former Tobacco user e-Cigarette/Vaping Use: Never Used service: No Current occupational status: disabled Current occupational exposures/hazards: No Cognitive needs: No Hearing needs: No Vision needs: No Physical Exam Vital Signs: Last Vital Signs Temp 98.6 F 12/03/23 10:44 Pulse 102 H 12/03/23 10:44 BP 130/90 H 12/03/23 10:44 Pulse Ox 93 12/03/23 10:44 Oxygen Delivery Method Room Air 12/03/23 10:44 BMI result Body Mass Index 38.1 Const General: cooperative, healthy appearing, comfortable and no acute distress Orientation/consciousness: patient oriented x3 Limitations: no limitations HEENT Head: Yes normal to inspection Ears: hearing grossly normal bilaterally, external ears normal and TM's normal bilaterally General nose exam: Normal external nose present, Normal nares present and No nasal discharge present Face and sinus: Yes normal facial exam and Yes sinuses nontender Mouth: Normal oral and palatal mucosa present and moist mucous membranes Throat: Yes tonsils normal, Yes uvula midline and Yes posterior oropharynx abnormal (Erythema) Eyes General: appearance normal, both eyes and all related structures Neck Neck: Yes normal visual inspection Resp Effort & Inspection: normal respiratory effort, able to speak in complete sentences, Actively coughing, no respiratory distress, not tachypneic, no tripod positioning and no use of accessory muscles Auscultation: wheezes expiratory wheezes, inspiratory wheezes and throughout and diminished lung sounds bilateral (slightly dim) Cardio Rate: regular rate Rhythm: regular rhythm Heart sounds: normal S1 and S2 Skin General skin exam: no rashes or lesions noted Neuro General: patient oriented x3 Extrem General: Yes normal to inspection and Yes no clubbing, cyanosis or edema Office Procedures Nebulizer Treatment Nebulizer Treatment [id number]/MDI RX initial, or Nebulizer Subsequent Treatment Assessment & Plan Assessment & Plan (1) Asthma with acute exacerbation: Code(s): J45.901 - Unspecified asthma with (acute) exacerbation Qualifiers: Asthma severity: mild Asthma persistence: unspecified Qualified Code(s): J45.901 - Unspecified asthma with (acute) exacerbation Plan: Patient mildly tachycardic, regular rate upon auscultation, also slightly hypoxic satting 93% on room air. Gave him a DuoNeb treatment in office with great relief has a his shortness of breath. We will get a chest x-ray to rule out pneumonia, upon my read, no PNA noted, will wait for Rads read. Patient states he can borrow a nebulizer machine but did request a new one be sent to him, will message his PCP to request that. But I did send DuoNeb treatment packets as well as a new albuterol inhaler and a burst of prednisone. We did send flu COVID and RSV testing. Recommended he treat himself with [id number] medications to treat his other symptoms as likely viral. (2) URI (upper respiratory infection): Code(s): J06.9 - Acute upper respiratory infection, unspecified Qualifiers: URI type: unspecified viral URI Qualified Code(s): J06.9 - Acute upper respiratory infection, unspecified Plan: see above Plan see above Orders: Orders XR chest 2V Today R05.9 - Cough, unspecified SARS-CoV2/FLU/RSV Today J06.9 - Acute upper respiratory infection, unspecified AMB Nebulizer Treatment Today R06.2 - Wheezing Medications: New albuterol sulfate 90 mcg/actuation (Ventolin HFA) 2 puffs inhalation Q4-6H PRN 8.5 grams 0RF shortness of breath or wheezing prednisone 40 mg (2 x 20 mg) PO DAILY 10 tabs 0RF ipratropium-albuterol 0.5 mg-3 mg(2.5 mg base)/3 mL 3 mL inhalation ONCE 3 mL 0RF short of breath R06.2 - Wheezing ipratropium-albuterol 0.5 mg-3 mg(2.5 mg base)/3 mL 3 mL inhalation Q6-8H PRN 90 mL 0RF wheezing or shortness of breath Coding Level of Care Code Est Pt Level 4 (28251) Diagnoses Mild asthma with acute exacerbation, unspecified whether persistent J45.901 Asthma severity: mild Asthma persistence: unspecified Viral upper respiratory tract infection J06.9 URI type: unspecified viral URI CPT Codes Nebulizer Treatment - Nebulizer Treatment, initial or subsequent: 63642- Nebulizer/MDI RX initial, or Nebulizer Subsequent Treatment ([id number])
[2023-12-03 10:44] VITALS: BP 130/90; PULSE 102; TEMP 37; O2SAT 93; BMI 38.1
== END 2023-12-03 11:56 | disposition home or self-care (01) ==
PROVIDERS: PCP Internal Medicine; Visit Provider Physician Assistant
DX: J45.901 Unspecified asthma with (acute) exacerbation (principal); R06.2 Wheezing

== ENCOUNTER 2023-12-03 11:22 | Outpatient (REF) | payer MEDICARE, MEDICAID, SELFPAY ==
--- NOTE | ~2023-12-03 | XR_ITS ---
EXAMINATION: XR CHEST CLINICAL INFORMATION: Cough. COMPARISON: None available. TECHNIQUE: 2 views of the chest were obtained. FINDINGS: No significant abnormality is noted involving the heart, lungs, mediastinum, bony thorax or soft tissues. XR/XR chest 2V IMPRESSION: Normal chest PA and lateral. Electronically signed by: Greg Hawk MD 12/03/2023 12:36 PM EDT
== END 2023-12-03 11:23 | disposition home or self-care (01) ==
LOC: HO.HMGCX 11:22
PROVIDERS: PCP Internal Medicine; Visit Provider Physician Assistant
DX: R05.9 Cough, unspecified (principal)
CPT/HCPCS: 71046

== ENCOUNTER 2024-11-30 12:47 | Outpatient (REF) | payer MEDICARE, SELFPAY ==
[2024-11-30 16:21] LABS: MANUAL DIFF FLAG NO
[2024-11-30 16:31] LABS: Hematocrit 41.1 % (42.0-52.0); Hemoglobin 13.7 g/dl (14.0-18.0); Imm Gran Abs Auto 0.02 X10*3/uL (0.00-0.03); Imm Gran Pct Auto 0.3 % (0.0-0.4); Lymphocytes Absolute Auto 1.4 X10*3/uL (1.2-4.9); Mean Corpuscular HGB Conc 33.3 g/dl (31.0-36.0); Mean Corpuscular Hemoglobin 27.5 pg (27.0-33.0); Mean Corpuscular Volume 82.5 fL (80.0-98.0); NRBC Abs Auto 0.000 X10*3/uL (0.0-0.012); NRBC Pct Auto 0.0 /100WBC (0.0-0.2); Platelet Count 175 X10*3/uL (160-400); Red Blood Count 4.98 X10*6/uL (4.60-5.80); White Blood Count 6.4 X10*3/uL (4.8-10.8)
[2024-11-30 16:45] LABS: Alanine Aminotransferase 51 U/L (0-40); Albumin Level 4.8 g/dL (3.5-5.0); Alkaline Phosphatase 85 U/L (39-117); Anion Gap 11 (12-20); Aspartate Amino Transferase 44 U/L (5-37); Blood Urea Nitrogen 9 mg/dL (9-16); Calcium 9.3 mg/dL (8.4-10.2); Carbon Dioxide 28 mmol/L (22-29); Chloride 107 mmol/L (96-108); Cholesterol 217 mg/dL (<200); Estimated Glomerular Filt Rate > 60; HDL Cholesterol 41 mg/dL (>40); Potassium 4.2 mmol/L (3.3-5.1); Sodium 142 mmol/L (135-145); Total Protein 7.4 g/dL (6.5-8.0); Triglycerides 270 mg/dL (<150)
[2024-11-30 16:56] LABS: Hemoglobin A1C 144.9894 umol/L
[2024-11-30 17:14] LABS: Folate 6.6 ng/mL (> or = 4.0); Vitamin B12 459 pg/mL (200-900)
[2024-12-06 15:24] LABS: Testosterone, Free 33.7 pg/mL (35.0-155.0)
== END 2024-11-30 12:48 | disposition home or self-care (01) ==
LOC: HO.HMGCLDS 12:47
PROVIDERS: PCP Internal Medicine; Visit Provider Internal Medicine
DX: Z00.01 Encounter for general adult medical examination with abnormal findings (principal); Z23 Encounter for immunization; F43.10 Post-traumatic stress disorder, unspecified; R79.89 Other specified abnormal findings of blood chemistry; J45.901 Unspecified asthma with (acute) exacerbation; E66.01 Morbid (severe) obesity due to excess calories; Z68.39 Body mass index [BMI] 39.0-39.9, adult; E78.2 Mixed hyperlipidemia; R73.01 Impaired fasting glucose; F98.8 Other specified behavioral and emotional disorders with onset usually occurring in childhood and adolescence; R68.82 Decreased libido; G47.19 Other hypersomnia; R06.83 Snoring; Z89.611 Acquired absence of right leg above knee; Z71.3 Dietary counseling and surveillance
CPT/HCPCS: 36415; 80053; 80061; 82306; 82607; 82746; 83036; 84402; 84403; 84443; 85025; 90471; 90656; 96127; 96160; 99396

== ENCOUNTER 2024-11-30 12:47 | Outpatient (AMB) | payer MEDICARE, MEDICAID, SELFPAY ==
[2024-11-30 13:06] VITALS: BP 140/92; PULSE 89; RESP 16; TEMP 36.8; O2SAT 97; BMI 39.1
--- NOTE | 2024-11-30 13:06 | MHC.PC.OV ---
Vital Signs 11/30/24 13:06 Height 6 ft 3 in Weight 313 lb BMI 39.1 BP 140/92 H Blood Pressure Location Rt brachial Position Sitting Respiration 16 Pulse 89 Pulse Source Pulse Oximeter Temp 98.2 F Temp Source Oral Pulse Oximetry (%) 97 Oxygen Delivery Method Room Air Intake Visit Reasons: PE Intake Note: Pt is here today for his PE Allergies environmental allergies Allergy (Intermediate, Verified 11/30/24 13:20) Sneezing Medication List - Last Reconciled 11/30/24 by Ailyn Merlos MD albuterol sulfate 90 mcg/actuation (Ventolin HFA) 2 puffs inhalation Q4-6H PRN aspirin (Adult Low Dose Aspirin) 81 mg PO DAILY atomoxetine 80 mg PO QAM bisacodyl (Dulcolax (bisacodyl)) 20 mg (4 x 5 mg) PO ONCE 1 day bupropion HCl SR 100 mg PO QAM [custom liner for above knee prosthesis As directed. custom liner for above knee prosthesis] desonide 0.05% 1 appl topical BID gabapentin 900 mg PO TID ipratropium-albuterol 0.5 mg-3 mg(2.5 mg base)/3 mL 3 mL inhalation Q4-6H PRN loratadine (Allergy Relief (loratadine)) 10 mg PO DAILY PRN [Nebulizer and all supplies As directed] polyethylene glycol 3350 (Miralax) 238 grams PO ONCE Prosthetic socket insert liner, above knee As directed [Right prosthetic knee As directed NS] sertraline 100 mg PO DAILY Tobacco use date assessed: 11/30/24 Dental Screening Dental Screen Date: 11/30/24 Did you have a dental visit in the last 12 months?: No Did you have a dental problem in the last 6 months where you did not have access to dental care?: No Was dental information given to patient?: Patient declined HPI PE HPI Details The patient is a 44-year-old male with past medical history of hypertension insomnia, mild intermittent asthma, hyperlipidemia PTSD, and history of necrotizing fasciitis status post amputation of both lower extremities, here today for his physical exam Blood pressure today was noted to be elevated, recently finished a course of prednisone,, which may have contributed to elevated blood pressure. The patient reports insomnia, with frequent awakenings, but has not been diagnosed with sleep apnea. A sleep study has been recommended to further evaluate the sleep disturbances. Asthma is present, with occasional wheezing noted, particularly during this time of year. The patient uses an albuterol inhaler as needed and does not require a steroid inhaler. The patient has a history of hyperlipidemia, with previous labs indicating elevated cholesterol and triglycerides. Vitamin D and testosterone levels were also noted to be low, and supplementation or further evaluation may be necessary. The patient has a history of cardiac arrest, which occurred during a septic episode requiring surgical intervention. He continues to see a backup administrator regularly for follow-up care. The patient has PTSD, which is being managed with psychiatric support. He is currently taking Wellbutrin, Strattera, and sertraline, and continues to see his psychiatrist. Preventative care measures include preparation for a colonoscopy, influenza vaccination, and a COVID-19 booster, with the tetanus vaccination already up to date. [facility] Medical History (Updated 11/30/24 @ 13:38 by Ailyn Merlos MD) Disturbed sleep rhythm Loud snoring Excessive daytime sleepiness Low testosterone in male Loss of libido ADD (attention deficit disorder) Impaired fasting glucose Vitamin D deficiency Mixed dyslipidemia History of necrotizing fasciitis Phantom pain after amputation of lower extremity Open wound of left knee, leg and ankle with tendon involvement Complicated open wound of right thigh Right above-knee amputee History of septic shock PTSD (post-traumatic stress disorder) Morbid obesity Dyshidrotic eczema Surgical History History of fasciotomy Social History Housing: House Patient Tobacco Use Status: Former Tobacco user e-Cigarette/Vaping Use: Never Used service: No Current occupational status: disabled Current occupational exposures/hazards: No Cognitive needs: No Hearing needs: No Vision needs: No Questionnaire PHQ-9 Over the last 2 weeks, how often have you been bothered by any of the following problems? 1. Little interest or pleasure in doing things: several days 2. Feeling down, depressed, or hopeless: several days 3. Trouble falling or staying asleep, or sleeping too much: more than half the days 4. Feeling tired or having little energy: several days 5. Poor appetite or overeating: not at all 6. Feeling bad about yourself - or that you are a failure or have let yourself or your family down: several days 7. Trouble concentrating on things, such as reading the newspaper or watching television: several days 8. Moving or speaking so slowly that other people could have noticed. Or the opposite - being so fidgety or restless that you have been moving around a lot more than usual: not at all 9. Thoughts that you would be better off or of hurting yourself in some way: not at all Total score: 7 Depression Screening Interpretation: Positive (Followed by psychiatrist) Depression Screening Follow-up: Existing condition, In treatment and Community Mental Health Worker F/U Depression Screening Done: Yes 97676 - PHQ-9 Billing: Yes Source: Developed by Drs. Scot Hoff, Radha Sequeira, Pranav Macdonald and colleagues, with an educational deshawn from [employer]. Thrive Questionnaire Date Thrive assessed: 11/28/24 I am a: Patient What is your living situation today?: I have a steady place to live Within the past 12 months, did the food you bought not last and you didn't have the money to get more?: Never true Within the past 12 months, did you worry whether your food would run out before you got money to buy more?: Never true Do you have trouble paying for medicines?: No Do you have trouble getting transportation to medical appointments?: No Do you have trouble paying your heating and electricity bill?: No Do you have trouble taking care of your child, family member or friend?: No Do you have trouble with day-to-day activities such as bathing, preparing meals, shopping, managing finances, etc.?: No Are you currently unemployed and looking for a job?: No Are you interested in more education?: Yes Please select the resources that you would like help with: None Currently or been in a relationship where the following occur: No concerns reported THRIVE Score: 0 AUDIT C Alcohol Use Questionnaire (AUDIT-C) 1. How often do you have a drink containing alcohol?: Never 3. How often do you have six or more drinks on one occasion?: Never Total Score: 0 SERINA-7 AMB Questionnaire SERINA-7 Date SERINA - 7 assessed: 11/30/24 Feeling nervous, anxious, or on edge: 2 = More than half the days Not being able to stop or control worryin = More than half the days Worrying too much about different things: 1 = Several days Trouble relaxin = More than half the days Being so restless that it is hard to sit still: 0 = Not at all Becoming easily annoyed or irritable: 0 = Not at all Feeling afraid as if something awful might happen: 3 = Nearly every day Total SERINA-7 score (0-4 normal; 5-9 mild; 10-14 moderate; 15-21 severe): 10 Source: Developed by Drs. Scot Hoff, Radha Sequeira, Pranav Macdonald and colleagues, with an educational deshawn from [employer]. SERINA-7 Assessment Billing SERINA-7 Assessment Tool: SERINA-7 Assessment 09127 ACT Questionnaire In the past 4 weeks, how much of the time did your asthma keep you from getting as much done at work, school or at home?: None of the time During the past 4 weeks, how often have you had shortness of breath?: 1-2 times a week During the past 4 weeks, how often did your asthma symptoms wake you up at night or earlier than usual in the morning?: Once or twice per week During the past 4 weeks, how often have you had to use your rescue inhaler or nebulizer medication?: Once a week or less How would you rate your asthma control during the past 4 weeks?: Well controlled ACT Interpretation: Positive Score: 21 Review of Systems Const Reports no additional complaints Eyes Reports no additional complaints ENT Reports no additional complaints and Denies odynophagia Card Reports no additional complaints Resp Reports no additional complaints GI Denies abdominal pain, Denies belching, Denies melena, Denies bloating, Denies change in bowel habits, Denies heartburn, Denies diarrhea, Denies nausea, Denies odynophagia and Denies vomiting Reports no additional complaints Musc Reports no additional complaints Skin/Breast Denies new lesions and Denies rash Neuro Reports no additional complaints Psych Reports no additional complaints Endo Reports no additional complaints Elias/Lymph Reports no additional complaints Aller/Immun Reports as per HPI Physical exam (Primary Care) Vital Signs: Last Vital Signs Temp 98.2 F 11/30/24 13:06 Pulse 89 11/30/24 13:06 Resp 16 11/30/24 13:06 BP 140/92 H 11/30/24 13:06 Pulse Ox 97 11/30/24 13:06 Oxygen Delivery Method Room Air 11/30/24 13:06 BMI result Body Mass Index 39.1 Tobacco/Smoking Status: Tobacco use Status Tobacco use date assessed 11/30/24 11/30/24 13:11 Patient Tobacco Use Status Former Tobacco user 11/30/24 13:11 e-Cigarette/Vaping Use Never Used 11/30/24 13:11 PHQ-9: PHQ-9 Score PHQ-9: Total score 7 11/30/24 13:58 Depression Screening Interpretation: Positive (Followed by psychiatrist) Depression Screening Follow-up: Existing condition, In treatment and Community Mental Health Worker F/U Thrive Assessment: Date of Thrive Assessment Date Thrive assessed 11/28/24 11/30/24 13:11 Currently or been in a relationship where the following occur: No concerns reported Const General: comfortable, no acute distress and alert Nutritional Appearance: obese morbidly obese Orientation/consciousness: patient oriented x3 HENMT Mouth: Normal oral and palatal mucosa present and moist mucous membranes Neck Neck: Yes full ROM, Yes no lymphadenopathy and Yes supple Resp Effort & Inspection: normal respiratory effort and able to speak in complete sentences Auscultation: clear to auscultation bilaterally Cardio Other: S1-S2 present regular rate and rhythm GI Other: Normal bowel sounds, soft, nontender, no mass palpated Back/Spine/Pelvis Back: No back tenderness Neuro General: patient oriented x3, gait normal (With aid of right leg prosthesis), moves all extremities, no focal motor deficits and CN's II-XI intact bilaterally Extrem Other: Right AKA, healed surgical scars in right thigh and left lower extremity General: Yes full ROM Psych Appearance: grossly normal and well kempt Mental Status: mental status grossly normal Affect: normal affect Office Procedures Flu Questionnaire Does the patient have a severe egg allergy?: No Does the patient have severe life threatening allergies?: No Does the patient have a fever or illness today?: No Has the patient ever had Guillain-[place] Syndrome?: No Has the patient ever had any past reaction to a flu shot?: No Immunizations Fluarix [id number] (PF) 45 mcg (15 mcg x 3)/0.5 mL IM syringe Performing Provider: Ailyn Merlos MD Performing Location: [facility] [place] [facility] Administered by: Lila Guzman CMA on 11/30/24 13:57 Dose Route Admin Location Dispensed Lot Number Expiration Date NDC Senior Java Web Application Developer 0.5 mL IM Right Deltoid 0.5 mL [id number] 08/28/25 [id number] [employer] VIS Given Date VIS Provided VIS Publication Date 11/30/24 Single Vaccine 24 Eligibility Eligibility Date Funding Source Not [facility] Eligible 11/30/24 Private Coding Level of Care Code Est Pt Prev Care 40-64y(07667) Diagnoses Annual visit for general adult medical examination with abnormal findings Z00.01 Morbid obesity E66.01 PTSD (post-traumatic stress disorder) F43.10 Right above-knee amputee Z89.611 Mixed dyslipidemia E78.2 Impaired fasting glucose R73.01 ADD (attention deficit disorder) F98.8 Loss of libido R68.82 Excessive daytime sleepiness G47.19 Loud snoring R06.83 Additional Codes SERINA-7 Assessment Billing - SERINA-7 Assessment Tool: SERINA-7 Assessment 37616 ([id number]) PHQ-9 - 33233 - PHQ-9 Billing: Yes ([id number]) Asthma Control Questionnaire - ACT Interpretation: Positive ([id number]) Assessment & Plan Assessment & Plan (1) Annual visit for general adult medical examination with abnormal findings: Code(s): Z00.01 - Encounter for general adult medical examination with abnormal findings Plan: Will check appropriate labs. Recommended dental visit every 6 months and regular eye exams, at least every 2 years. Flu shot given today. Recommended to get updated COVID booster. He has been referred to GI Clinic for initial colonoscopy screening, seen last 10/2023, still waiting for an appointment date for his colonoscopy procedure (2) Morbid obesity: Code(s): E66.01 - Morbid (severe) obesity due to excess calories Category: Medical (3) PTSD (post-traumatic stress disorder): Code(s): F43.10 - Post-traumatic stress disorder, unspecified Category: Medical (4) Right above-knee amputee: Code(s): Z89.611 - Acquired absence of right leg above knee Category: Medical (5) Mixed dyslipidemia: Code(s): E78.2 - Mixed hyperlipidemia Category: Medical (6) Impaired fasting glucose: Code(s): R73.01 - Impaired fasting glucose Category: Medical (7) ADD (attention deficit disorder): Comment: Followed by psychiatry- Jessica Aguilar Code(s): F98.8 - Other specified behavioral and emotional disorders with onset usually occurring in childhood and adolescence Category: Medical (8) Loss of libido: Code(s): R68.82 - Decreased libido Category: Medical (9) Excessive daytime sleepiness: Code(s): G47.19 - Other hypersomnia Category: Medical (10) Loud snoring: Code(s): R06.83 - Snoring Category: Medical Plan 1. Hypertension The patient's hypertension is being monitored, with the removal of prednisone from the medication list potentially impacting blood pressure control. Blood pressure will be reassessed following lab work. 2. Insomnia A sleep study is recommended to evaluate the patient's insomnia and potential sleep apnea. The patient reports difficulty sleeping and frequent awakenings. 3. Asthma The patient experiences occasional wheezing and uses an albuterol inhaler as needed. flu shot given today 4. Hyperlipidemia Previous labs indicated elevated cholesterol and triglycerides. Current lab work will reassess these levels to guide further management. 5. Low Vitamin D and Testosterone The patient has low levels of vitamin D and testosterone. Supplementation and further evaluation will be considered based on lab results. 6. PTSD The patient continues psychiatric support and medication management for PTSD. Regular follow-up with the psychiatrist is advised. 7. Preventative Care The patient will receive an influenza vaccination today, and a COVID-19 booster is recommended at the pharmacy. Colonoscopy preparation is complete, and the tetanus vaccination is up to date. Patient was informed and verbally consented to the use of an ambient scribe for clinic note documentation during this visit. Orders: Orders Vitamin B12 and Folate 11/30/24 E66.01 - Morbid (severe) obesity due to excess calories, E78.2 - Mixed hyperlipidemia, F43.10 - Post-traumatic stress disorder, unspecified, F98.8 - Other specified behavioral and emotional disorders with onset usually occurring in childhood and adolescence, J45.901 - Unspecified asthma with (acute) exacerbation, R68.82 - Decreased libido, R73.01 - Impaired fasting glucose, R79.89 - Other specified abnormal findings of blood chemistry, Z00.01 - Encounter for general adult medical examination with abnormal findings, Z89.611 - Acquired absence of right leg above knee Comprehensive [place]. Panel Fast 11/30/24 E66.01 - Morbid (severe) obesity due to excess calories, E78.2 - Mixed hyperlipidemia, F43.10 - Post-traumatic stress disorder, unspecified, F98.8 - Other specified behavioral and emotional disorders with onset usually occurring in childhood and adolescence, J45.901 - Unspecified asthma with (acute) exacerbation, R68.82 - Decreased libido, R73.01 - Impaired fasting glucose, R79.89 - Other specified abnormal findings of blood chemistry, Z00.01 - Encounter for general adult medical examination with abnormal findings, Z89.611 - Acquired absence of right leg above knee Complete Blood Count Auto Diff 11/30/24 E66.01 - Morbid (severe) obesity due to excess calories, E78.2 - Mixed hyperlipidemia, F43.10 - Post-traumatic stress disorder, unspecified, F98.8 - Other specified behavioral and emotional disorders with onset usually occurring in childhood and adolescence, J45.901 - Unspecified asthma with (acute) exacerbation, R68.82 - Decreased libido, R73.01 - Impaired fasting glucose, R79.89 - Other specified abnormal findings of blood chemistry, Z00.01 - Encounter for general adult medical examination with abnormal findings, Z89.611 - Acquired absence of right leg above knee Vitamin D 25-OH Total 11/30/24 E66.01 - Morbid (severe) obesity due to excess calories, E78.2 - Mixed hyperlipidemia, F43.10 - Post-traumatic stress disorder, unspecified, F98.8 - Other specified behavioral and emotional disorders with onset usually occurring in childhood and adolescence, J45.901 - Unspecified asthma with (acute) exacerbation, R68.82 - Decreased libido, R73.01 - Impaired fasting glucose, R79.89 - Other specified abnormal findings of blood chemistry, Z00.01 - Encounter for general adult medical examination with abnormal findings, Z89.611 - Acquired absence of right leg above knee Testosterone, Free/Total 11/30/24 E66.01 - Morbid (severe) obesity due to excess calories, E78.2 - Mixed hyperlipidemia, F43.10 - Post-traumatic stress disorder, unspecified, F98.8 - Other specified behavioral and emotional disorders with onset usually occurring in childhood and adolescence, J45.901 - Unspecified asthma with (acute) exacerbation, R68.82 - Decreased libido, R73.01 - Impaired fasting glucose, R79.89 - Other specified abnormal findings of blood chemistry, Z00.01 - Encounter for general adult medical examination with abnormal findings, Z89.611 - Acquired absence of right leg above knee Lipid Panel 11/30/24 E66.01 - Morbid (severe) obesity due to excess calories, E78.2 - Mixed hyperlipidemia, F43.10 - Post-traumatic stress disorder, unspecified, F98.8 - Other specified behavioral and emotional disorders with onset usually occurring in childhood and adolescence, J45.901 - Unspecified asthma with (acute) exacerbation, R68.82 - Decreased libido, R73.01 - Impaired fasting glucose, R79.89 - Other specified abnormal findings of blood chemistry, Z00.01 - Encounter for general adult medical examination with abnormal findings, Z89.611 - Acquired absence of right leg above knee TSH reflex Free T4 11/30/24 E66.01 - Morbid (severe) obesity due to excess calories, E78.2 - Mixed hyperlipidemia, F43.10 - Post-traumatic stress disorder, unspecified, F98.8 - Other specified behavioral and emotional disorders with onset usually occurring in childhood and adolescence, J45.901 - Unspecified asthma with (acute) exacerbation, R68.82 - Decreased libido, R73.01 - Impaired fasting glucose, R79.89 - Other specified abnormal findings of blood chemistry, Z00.01 - Encounter for general adult medical examination with abnormal findings, Z89.611 - Acquired absence of right leg above knee Hemoglobin A1c 11/30/24 E66.01 - Morbid (severe) obesity due to excess calories, E78.2 - Mixed hyperlipidemia, F43.10 - Post-traumatic stress disorder, unspecified, F98.8 - Other specified behavioral and emotional disorders with onset usually occurring in childhood and adolescence, J45.901 - Unspecified asthma with (acute) exacerbation, R68.82 - Decreased libido, R73.01 - Impaired fasting glucose, R79.89 - Other specified abnormal findings of blood chemistry, Z00.01 - Encounter for general adult medical examination with abnormal findings, Z89.611 - Acquired absence of right leg above knee Influenza [id number] Immunization 11/30/24 Z23 - Encounter for immunization Referrals Sleep Medicine Referral G47.19 - Other hypersomnia, G47.20 - Circadian rhythm sleep disorder, unspecified type, R06.83 - Snoring
--- OUTSIDE RECORDS SUMMARY | 2024-11-30 14:16 | XMS_ITS | Encounter Summary ---
Author Organization [facility] Address [address] [place] [id number] Care Team Providers Care Cost Estimating Clerk Name Role Phone Marina Leo MD Primary Care Provider [phone]- [phone] Encounter Details Date Type Department Care Team (Late st Contact Info) Description 01/02/2019 Scanned Document [address] [phone] Pulmonary, Scan Social History Tobacco Use Types Packs/Day Years Used Date Smoking Tobacco: Every Day Cigarettes 1 12 Smokeless Tobacco: Never Alcohol Use Standard Drinks/Week Comments Yes 0 (1 standard drink = 0.6 oz pur e alcohol) PHQ-2 Answer Date Recorded PHQ-2 Total Score 1 11/01/2018 Sex and Gender Information Value Date Recorded Sex Assigned at Not on file Legal Sex Male 1:41 PM EDT Gender Identity Not on file Sexual Orientation Not on file Occupation Industry Job Start Date Job End Date Not on file Not on file Not on file Not on file documented as of this encounter Plan of Treatment Not on file documented as of this encounter Visit Diagnoses Not on filedocumented in this encounter Care Teams Cost Estimating Clerk Relationship Specialty Start Date End Date Marina Leo MD [address] [facility] [address] [place] [address] PCP - General Internal Medicine 05/13/16 07/07/22 documented as of this encounter
--- OUTSIDE RECORDS SUMMARY | 2024-11-30 14:16 | XMS_ITS | Encounter Summary ---
Author Organization [facility] Address [address] [place], [place] [id number] Care Team Providers Care Harvesting Manager Name Role Phone Marina Leo MD Primary Care Provider [phone]- [phone] Encounter Details Date Type Department Care Team (Late st Contact Info) Description 07/08/2020 Scanned Document [address] [phone] Provider, Generic Social History Tobacco Use Types Packs/Day Years Used Date Smoking Tobacco: Former Cigarettes 1 12 Smokeless Tobacco: Never Alcohol Use Standard Drinks/Week Comments Never 0 (1 standard drink = 0.6 oz pur e alcohol) AUDIT-C Answer Date Recorded Frequency of Alcohol Consumption Never 05/01/2019 Average Number of Drinks Not on file 020 Frequency of Binge Drinking Not on file 04/2019 PHQ-2 Answer Date Recorded PHQ-2 Total Score [...] on filedocumented in this encounter Care Teams Harvesting Manager Relationship Specialty Start Date End Date Marina Leo MD [address] [facility] [address] [place] [address] PCP - General Internal Medicine 05/13/16 07/07/22 documented as of this encounter
--- OUTSIDE RECORDS SUMMARY | 2024-11-30 14:16 | XMS_ITS | Encounter Summary ---
Author Organization [facility] Address [address] [place] [id number] Care Team Providers Care School Lunch Monitor Name Role Phone Marina Leo MD Primary Care Provider [phone]- [phone] Encounter Details Date Type Department Care Team (Late st Contact Info) Description 12/22/2018 Scanned Document [address] [phone] Pulmonary, Scan Social History Tobacco Use Types [...] on filedocumented in this encounter Care Teams School Lunch Monitor Relationship Specialty Start Date End Date Marina Leo MD [address] [facility] [address] [place] [address] PCP - General Internal Medicine 05/13/16 07/07/22 documented as of this encounter
--- OUTSIDE RECORDS SUMMARY | 2024-11-30 14:16 | XMS_ITS | Clinical Summary ---
Author Organization [facility] Address [address] [facility] [address] [place] [address] Phone Care Team Providers Care Administrator Pesticide Name Role Phone Unavailable Primary Care Provider Unavailabl e Social History Tobacco Use Types Packs/Day Years Used Date Smoking Tobacco: Never Assessed Education Answer Date Recorded Are you interested in more education? Not on estefani e 06/27/2022 Are you concerned about learning? Not on file 06/27/2022 No 06/27/2022 No 06/27/2022 Digital Access Answer Date Recorded No 07/28/2022 No 07/28/2022 Reliable internet access at home? Not on file 07/28/2022 Device with a working camera? Not on file Sex and Gender Information Value Date Recorded Sex Assigned at Not on file Legal Sex Male 3:49 PM EDT Gender Identity Not on file Sexual Orientation Not on file Plan of Treatment Not on file Medical Devices Not on file Additional Source Comments The information contained in this document represents components of the legal health record. It is not the complete legal health record.[facility]
--- OUTSIDE RECORDS SUMMARY | 2024-11-30 14:16 | XMS_ITS | Clinical Summary ---
Author Organization [facility] Address [address] [place] [address] Care Team Providers Care Green Building Engineer Name Role Phone Carol Branham MD Primary Care Provider [phone] Allergies No known active allergies Medications Medication Sig Dispensed Refills Start Date End Date Status pantoprazole (PROTONIX) 40 MG tablet Take 1 tablet (40 mg total) by mouth every morning on an empty stomach. 30 tablet 0 08/19/2015 Active Active Problems No known active problems Social History Tobacco Use Types Packs/Day Years Used Date Smoking Tobacco: Never Assessed Sex and Gender Information Value Date Recorded Sex Assigned at Not on file Gender Identity Not on file Sexual Orientation Not on file Last Filed Vital Signs Vital Sign Reading Time Taken Comments Blood Pressure 128/61 08/19/2015 2:06 AM EDT Pulse 66 08/19/2015 2:06 AM EDT Temperature 36.6 C (97.9 F) 08/19/2015 2:06 AM EDT Respiratory Rate 18 08/19/2015 2:06 AM EDT Oxygen Saturation 92% 08/19/2015 2:06 AM EDT Inhaled Oxygen Concentration - - Weight 95.3 kg (210 lb) 08/18/2015 7:38 PM EDT Height 182.9 cm (6') 08/18/2015 7:38 PM EDT Body Mass Index 28.48 08/18/2015 7:38 PM EDT Plan of Treatment Health Maintenance Due Date Last Done Comments Hepatitis B Vaccines (1 of 3 - 3-dose series) 1978 Hepatitis C Screening 1978 COVID-19 Vaccine (#1) 1978 Depression Screening 1990 Preventative Health Evaluation 01/08/1996 DTap / Tdap / Td (1 - Tdap) 1997 Colon Cancer Screening (Colonoscopy) 2023 Influenza Vaccine (#1) 2024 Pneumococcal Vaccine Aged Out No long er eligible based on patient's age to complete this topic RSV Ped < 20 months Aged Out No longe r eligible based on patient's age to complete this topic Care Teams Green Building Engineer Relationship Specialty Start Date End Date Carol Branham MD [facility] [place] [address] PCP - General Internal Medicine 08/18/15
--- OUTSIDE RECORDS SUMMARY | 2024-11-30 14:16 | XMS_ITS | Encounter Summary ---
Author Organization [facility] Address [address] [place] [address] Care Team Providers Care Head Orthopedic Team Physician Name Role Phone Marina Leo MD Primary Care Provider [phone]- [phone] Encounter Details Date Type Department Care Team (Late st Contact Info) Description 05/17/2019 Scanned Document [address] [phone] Marina Leo MD [address] [place] [address] Social History Tobacco Use Types Packs/Day Years [...] on filedocumented in this encounter Care Teams Head Orthopedic Team Physician Relationship Specialty Start Date End Date Marina Leo MD [address] [place] [address] [place] [address] PCP - General Internal Medicine 05/13/16 07/07/22 documented as of this encounter
--- OUTSIDE RECORDS SUMMARY | 2024-11-30 14:16 | XMS_ITS | Encounter Summary ---
Author Organization [facility] Address [address] [place] [address] Care Team Providers Care Planning Engineer Name Role Phone Marina Leo MD Primary Care Provider [phone]- [phone] Encounter Details Date Type Department Care Team (Late st Contact Info) Description 12/24/2018 Scanned Document [address] [phone] Cardiology, Scan Social History Tobacco Use Types Packs/Day [...] on filedocumented in this encounter Care Teams Planning Engineer Relationship Specialty Start Date End Date Marina Leo MD [address] [facility] [address] [place] [address] PCP - General Internal Medicine 05/13/16 07/07/22 documented as of this encounter
--- OUTSIDE RECORDS SUMMARY | 2024-11-30 14:16 | XMS_ITS | Encounter Summary ---
Author Organization [facility] Address [address] [place] [address] Care Team Providers Care Portrait Painter Name Role Phone Marina Leo MD Primary Care Provider [phone]- [phone] Encounter Details Date Type Department Care Team (Late st Contact Info) Description 06/30/2019 Scanned Document [address] [phone] Marina Leo MD [address] [place] [address] Social History Tobacco Use Types Packs/Day Years [...] on filedocumented in this encounter Care Teams Portrait Painter Relationship Specialty Start Date End Date Marina Leo MD [address] [place] [address] [place] [address] PCP - General Internal Medicine 05/13/16 07/07/22 documented as of this encounter
--- OUTSIDE RECORDS SUMMARY | 2024-11-30 14:16 | XMS_ITS | Encounter Summary ---
Author Organization [facility] Address [address] [place] [address] Care Team Providers Care Explosive Technician Name Role Phone Marina Leo MD Primary Care Provider +1- [phone] Encounter Details Date Type Department Care Team (Late st Contact Info) Description 12/22/2018 Scanned Document [address] [phone] Provider, Generic Social History Tobacco Use Types [...] on filedocumented in this encounter Care Teams Explosive Technician Relationship Specialty Start Date End Date Marina Leo MD [address] [facility] [address] [place] [address] PCP - General Internal Medicine 05/13/16 07/07/22 documented as of this encounter
--- OUTSIDE RECORDS SUMMARY | 2024-11-30 14:16 | XMS_ITS | Encounter Summary ---
Author Organization [facility] Address [address] [place] [address] Care Team Providers Care Knot Cutter Name Role Phone Marina Leo MD Primary Care Provider +1- [phone] Encounter Details Date Type Department Care Team (Late st Contact Info) Description 12/26/2018 Scanned Document [address] [phone] Cardiology, Scan Social History Tobacco Use Types [...] on filedocumented in this encounter Care Teams Knot Cutter Relationship Specialty Start Date End Date Mraina Leo MD [address] [facility] [address] [place] [address] PCP - General Internal Medicine 05/13/16 07/07/22 documented as of this encounter
--- OUTSIDE RECORDS SUMMARY | 2024-11-30 14:16 | XMS_ITS | Encounter Summary ---
Author Organization [facility] Address [address] [place] [address] Care Team Providers Care Premium Service Representative Name Role Phone Marina Leo MD Primary Care Provider +1- [phone] Encounter Details Date Type Department Care Team (Late st Contact Info) Description 05/05/2019 Scanned Document [address] [phone] Marina Leo MD [address] [place] [address] Social History Tobacco Use Types Packs/Day Years [...] on filedocumented in this encounter Care Teams Premium Service Representative Relationship Specialty Start Date End Date Marina Leo MD [address] [place] [address] [place] [address] PCP - General Internal Medicine 05/13/16 07/07/22 documented as of this encounter
--- OUTSIDE RECORDS SUMMARY | 2024-11-30 14:16 | XMS_ITS | Encounter Summary ---
Author Organization [facility] Address [address] [place] [address] Care Team Providers Care Tire Vulcanizer Name Role Phone Keyonna Branham MD Primary Care Provider Marina Leo MD Primary Care Provider +- [phone] Encounter Details Date Type Department Care Team (Late st Contact Info) Description 06/29/2015 Scanned Document [address] [phone] Keyonna Branham MD [address] [place] [address] Social History Tobacco Use Types Packs/Day Years Used Date Smoking Tobacco: Every Day Cigarettes 1 12 Smokeless Tobacco: Never Alcohol Use Standard Drinks/Week Comments Yes 0 (1 standard drink = 0.6 oz pur e alcohol) Sex and Gender Information Value Date Recorded [...] on filedocumented in this encounter Care Teams Tire Vulcanizer Relationship Specialty Start Date End Date Keyonna Branham MD [address] [place] [address] PCP - General 11/12/14 05/12/16 Marina Leo MD [address] [place] [address] PCP - General Internal Medicine 05/13/16 07/07/22 documented as of this encounter
--- OUTSIDE RECORDS SUMMARY | 2024-11-30 14:16 | XMS_ITS | Encounter Summary ---
Author Organization [facility] Address [address] [place] [address] Care Team Providers Care Geotechnical Field Technician Name Role Phone Marina Leo MD Primary Care Provider +1- [phone] Encounter Details Date Type Department Care Team (Late st Contact Info) Description 05/11/2019 Scanned Document [address] [phone] Infectious Diseases, Scan Social History Tobacco Use Types Packs/Day [...] on filedocumented in this encounter Care Teams Geotechnical Field Technician Relationship Specialty Start Date End Date Marina Leo MD [address] [facility] [address] [place] [address] PCP - General Internal Medicine 05/13/16 07/07/22 documented as of this encounter
--- OUTSIDE RECORDS SUMMARY | 2024-11-30 14:16 | XMS_ITS | Encounter Summary ---
Author Organization [facility] [place] [facility] Address [address] [place] [address] Care Team Providers Care Tool Design Drafter Name Role Phone Keyonna Branham MD Primary Care Provider [phone] Marina Leo MD Primary Care Provider +- [phone] Encounter Details Date Type Department Care Team (Late st Contact Info) Description 08/18/2015 Scanned Document [address] [phone] Provider, Generic Social History Tobacco Use Types [...] on filedocumented in this encounter Care Teams Tool Design Drafter Relationship Specialty Start Date End Date Keyonna Branham MD [address] [facility] [address] [place] [address] PCP - General 11/12/14 05/12/16 Marina Leo MD [address] [place] [address] PCP - General Internal Medicine 05/13/16 07/07/22 documented as of this encounter
--- OUTSIDE RECORDS SUMMARY | 2024-11-30 14:16 | XMS_ITS | Encounter Summary ---
Author Organization [facility] Address [address] [place] [address] Care Team Providers Care Solder Cream Maker Name Role Phone Marina Leo MD Primary Care Provider +1- [phone] Encounter Details Date Type Department Care Team (Late st Contact Info) Description 06/26/2019 Scanned Document [address] [phone] Marina Leo MD [address] [place] [address] Social History Tobacco Use Types Packs/Day Years [...] on filedocumented in this encounter Care Teams Solder Cream Maker Relationship Specialty Start Date End Date Marina Leo MD [address] [place] [address] [place] [address] PCP - General Internal Medicine 05/13/16 07/07/22 documented as of this encounter
--- OUTSIDE RECORDS SUMMARY | 2024-11-30 14:16 | XMS_ITS | Encounter Summary ---
Author Organization [facility] Address [address] [place] [address] Care Team Providers Care Prep Person Name Role Phone Marina Leo MD Primary Care Provider +1- [phone] Encounter Details Date Type Department Care Team (Late st Contact Info) Description 11/16/2019 Scanned Document [address] [phone] Marina Leo MD [address] [place] [address] Social History Tobacco Use Types Packs/Day Years [...] on filedocumented in this encounter Care Teams Prep Person Relationship Specialty Start Date End Date Marina Leo MD [address] [place] [address] [place] [address] PCP - General Internal Medicine 05/13/16 07/07/22 documented as of this encounter
--- OUTSIDE RECORDS SUMMARY | 2024-11-30 14:16 | XMS_ITS | Encounter Summary ---
Author Organization [facility] Address [address] [place] [address] Care Team Providers Care Housing Property Manager Name Role Phone Marina Leo MD Primary Care Provider +1- [phone] Encounter Details Date Type Department Care Team (Late st Contact Info) Description 09/04/2020 Scanned Document [address] [phone] Vascular Surgery, Scan Social History Tobacco Use Types Packs/Day [...] on filedocumented in this encounter Care Teams Housing Property Manager Relationship Specialty Start Date End Date Marina Leo MD [address] [facility] [address] [place] [address] PCP - General Internal Medicine 05/13/16 07/07/22 documented as of this encounter
--- OUTSIDE RECORDS SUMMARY | 2024-11-30 14:16 | XMS_ITS | Encounter Summary ---
Author Organization [facility] Address [address] [place] [address] Care Team Providers Care Loftsman/Woman Name Role Phone Marina Leo MD Primary Care Provider +1- [phone] Reason for Visit * Reason Comments Medication Refill Encounter Details Date Type Department Care Team (Late st Contact Info) Description 12/20/[address] [phone] Marina Leo MD [address] [place] [address] Mild intermittent asthma without complication Social History Tobacco Use Types Packs/Day Years [...] documented as of this encounter Visit Diagnoses Diagnosis Mild intermittent asthma without complication documented in this encounter Care Teams Loftsman/Woman Relationship Specialty Start Date End Date Marina Leo MD [address] [place] [address] PCP - General Internal Medicine 05/13/16 07/07/22 documented as of this encounter
--- OUTSIDE RECORDS SUMMARY | 2024-11-30 14:17 | XMS_ITS | Encounter Summary ---
Author Organization [facility] Address [address] [place] [address] Care Team Providers Care Pharmacy Informatics Specialist Name Role Phone Marina Leo MD Primary Care Provider +1- [phone] Encounter Details Date Type Department Care Team (Late st Contact Info) Description 04/28/2019 Scanned Document [address] [phone] Provider, Generic Social History Tobacco Use Types [...] on file documented as of this encounter Functional Status documented as of this encounter Plan of Treatment Not on file documented as of this encounter Visit Diagnoses Not on filedocumented in this encounter Care Teams Pharmacy Informatics Specialist Relationship Specialty Start Date End Date Marina Leo MD [address] [facility] [address] [place] [address] PCP - General Internal Medicine 05/13/16 07/07/22 documented as of this encounter
--- OUTSIDE RECORDS SUMMARY | 2024-11-30 14:17 | XMS_ITS | Encounter Summary ---
Author Organization [facility] Address [address] [place] [address] Care Team Providers Care Line Service Supervisor Name Role Phone Marina Leo MD Primary Care Provider +1- [phone] Encounter Details Date Type Department Care Team (Late st Contact Info) Description 03/23/2019 Scanned Document [facility] [address] [facility] [address] [place] [phone] Marina Leo MD [address] [facility] [address] [place] [address] Social History Tobacco Use Types Packs/Day Years [...] on filedocumented in this encounter Care Teams Line Service Supervisor Relationship Specialty Start Date End Date Marina Leo MD [address] [place] [address] PCP - General Internal Medicine 05/13/16 07/07/22 documented as of this encounter
--- OUTSIDE RECORDS SUMMARY | 2024-11-30 14:17 | XMS_ITS | Encounter Summary ---
Author Organization [facility] Address [address] [place] [address] Care Team Providers Care Fire Lieutenant Marine Name Role Phone Keyonna Branham MD Primary Care Provider [phone] Marina Leo MD Primary Care Provider +- [phone] Encounter Details Date Type Department Care Team (Late st Contact Info) Description 05/31/2015 Scanned Document [address] [phone] Provider, Generic Social History Tobacco [...] on filedocumented in this encounter Care Teams Fire Lieutenant Marine Relationship Specialty Start Date End Date Keyonna Branham MD [address] [facility] [address] [place] [address] PCP - General 11/12/14 05/12/16 Marina Leo MD [address] [place] [address] PCP - General Internal Medicine 05/13/16 07/07/22 documented as of this encounter
--- OUTSIDE RECORDS SUMMARY | 2024-11-30 14:17 | XMS_ITS | Encounter Summary ---
Author Organization [facility] Address [address] [place] [address] Care Team Providers Care Sanitation Manager Name Role Phone Marina Leo MD Primary Care Provider +1- [phone] Encounter Details Date Type Department Care Team (Late st Contact Info) Description 02/21/2019 Scanned Document [address] [place] [phone] Vascular Surgery, Scan Social History Tobacco Use [...] on filedocumented in this encounter Care Teams Sanitation Manager Relationship Specialty Start Date End Date Marina Leo MD [address] [facility] [address] [place] [address] PCP - General Internal Medicine 05/13/16 07/07/22 documented as of this encounter
--- OUTSIDE RECORDS SUMMARY | 2024-11-30 14:17 | XMS_ITS | Clinical Summary ---
Author Organization [facility] Address [address] [place] [address] Care Team Providers Care Helicopter Repairer Name Role Phone Unavailable Primary Care Provider Unavailabl e Allergies Active Allergy Reactions Criticality Noted Date Comments Morphine Rash/Dermatitis Low 05/01/2019 Penicillin V Rash/Dermatitis Low 05/01/2019 Medications mupirocin (BACTROBAN) 2 % ointment APPLY AM AND PM TO AFFECTED AREAS ON RIGHT AND LEFT FEET UNTIL HEALED 0 7 Active clobetasol (TEMOVATE) 0.05 % creamIndications: Eczema, unspecified type Apply topically 2 (two) times a day. 30 g 9 Active VENTOLIN HFA 108 (90 Base) MCG/ACT inhalerIndication s:Mild intermittent asthma without complication INHALE 2 PUFFS EVERY 4 HOURS NEEDED FOR WHEEZING. 3 Inhaler 1 9 Active gabapentin (NEURONTIN) 300 MG capsule Take 900 mg by mouth 3 (three) times a day. 0 Active HYDROmorphone (DILAUDID) 4 MG tablet TAKE 1 AND 1/2 TAB BY MOUTH EVERY 4 HOURS NEEDED PAIN SCALE 7 10* MAX3/DAY H 0 Active LORazepam (ATIVAN) 1 MG tablet Take 1 mg by mouth 2 (two) times a day. 0 Active OXYCONTIN 20 MG ER (extended release) tablet Take 20 mg by mouth twice daily (every 12 hours). 0 Active zolpidem (AMBIEN) 5 MG tablet Take 5 mg by mouth nightly as needed. as needed for insomnia 0 Active dronabinol (MARINOL) 5 MG capsule Take 5 mg by mouth twice daily (every 12 hours). 0 Active loratadine (CLARITIN) 10 MG tabletIndications :Uncomplicated asthma, unspecified asthma severity, unspecified whether persistent Take 1 tablet (10 mg total) by mouth every morning. 30 tablet 0 Active SUPPLY DME MISCIndications:S /P AKA (above knee amputation), right (HCC) Manual wheelchair Diagnosis: right above knee amputation 1 Device 0 Active tamsulosin (FLOMAX) 0.4 MG capsuleIndication s:Enlarged prostate TAKE 1 CAPSULE BY MOUTH EVERY DAY 30 capsule 0 Active metoPROLOL TARTRATE (LOPRESSOR) 50 MG tabletIndications :Hypertension, unspecified type TAKE 1 TABLET BY MOUTH EVERY DAY IN THE MORNING & 1/2 TABLET AT BEDTIME 45 tablet 1 0 Active sertraline (ZOLOFT) 50 MG tabletIndications :Major depressive disorder, recurrent episode, mild TAKE 1 TABLET BY MOUTH EVERY DAY 90 tablet 0 Active Active Problems Problem Noted Date Diagnosed Date Fatty liver 08/22/2015 Asthma 03/15/2014 Tobacco use disorder 03/15/2014 Impaired fasting glucose 03/15/2014 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 Immunizations Immunization Administration Dates Next Due Covid-19 MRNA Vaccine - Pfizer 12+ (Purple Cap) 07/25/2020 Tdap 06/10/2012 Family History Medical History Relation Name Comments Depression Brother No Known Problems Daughter Depression Father Obesity Father Heart disease Maternal Grandfather Depression Mother Obesity Mother Rosacea Mother Depression Sister Relation Name Status Comments Brother Alive Daughter Alive Father Alive Maternal Grandfather Mother Alive Sister Alive Social History Tobacco Use Types Packs/Day Years [...] file Not on file Not on file Last Filed Vital Signs Vital Sign Reading Time Taken Comments Blood Pressure 104/80 05/01/2019 1:38 PM EST Pulse 74 05/01/2019 1:38 PM EST Temperature 37.1 C (98.7 F) 05/01/2019 1:38 PM EST Respiratory Rate 16 05/01/2019 1:38 PM EST Oxygen Saturation 98% 05/01/2019 1:38 PM EST Inhaled Oxygen Concentration - - Weight 122 kg (269 lb 12.8 oz) 11/01/2018 8:26 A M EDT Height 188 cm (6' 2 ) 05/01/2019 1:38 PM EST Body Mass Index 34.64 11/01/2018 8:26 AM EDT Plan of Treatment Health Maintenance Due Date Last Done Comments Hepatitis C Virus Screening 1978 HIV Screening 1991 Hepatitis B Vaccines (1 of 3 - 19+ 3-dose series) 10/1996 Pneumococcal Vaccine: Pediat [place] (0-5 Years) and At-Risk Patients (6 to 49 Years) (1 of 2 - PCV) 1997 DTaP/Tdap/Td Vaccines (2 - Td or Tdap) 06/10/2022 Colonoscopy 2023 Influenza Vaccine 09/29/2024 COVID-19 Vaccine (2024- season) 2024 Insurance [employer]
--- OUTSIDE RECORDS SUMMARY | 2024-11-30 14:17 | XMS_ITS | Encounter Summary ---
Author Organization [facility] Address [address] [place] [address] Care Team Providers Care Properties Supervisor Name Role Phone Marina Leo MD Primary Care Provider +1- [phone] Encounter Details Date Type Department Care Team (Late st Contact Info) Description 06/01/2019 Scanned Document [address] [phone] Marina Leo MD [address] [place] [address] Social History Tobacco Use Types Packs/Day Years [...] on filedocumented in this encounter Care Teams Properties Supervisor Relationship Specialty Start Date End Date Marina Leo MD [address] [place] [address] [place] [address] PCP - General Internal Medicine 05/13/16 07/07/22 documented as of this encounter
--- OUTSIDE RECORDS SUMMARY | 2024-11-30 14:17 | XMS_ITS | Encounter Summary ---
Author Organization [facility] Address [address] [place] [address] Care Team Providers Care Hematology Supervisor Name Role Phone Marina Leo MD Primary Care Provider +1- [phone] Encounter Details Date Type Department Care Team (Late st Contact Info) Description 04/24/2019 Scanned Document [facility] [address] [facility] [address] [place] [phone] Marina Leo MD 100 [facility] [address] [place] [address] Social History Tobacco Use Types Packs/Day Years [...] on filedocumented in this encounter Care Teams Hematology Supervisor Relationship Specialty Start Date End Date Marina Leo MD [address] [place] [address] PCP - General Internal Medicine 05/13/16 07/07/22 documented as of this encounter
--- OUTSIDE RECORDS SUMMARY | 2024-11-30 14:17 | XMS_ITS | Encounter Summary ---
Author Organization [facility] Address [address] [place] [address] Care Team Providers Care Software Administrator Name Role Phone Marina Leo MD Primary Care Provider +1- [phone] Encounter Details Date Type Department Care Team (Late st Contact Info) Description 09/07/2020 Scanned Document [address] [phone] Family Medicine, Scan Social History Tobacco Use Types Packs/Day [...] on filedocumented in this encounter Care Teams Software Administrator Relationship Specialty Start Date End Date Marina Leo MD 100 [facility] [address] [place] [address] PCP - General Internal Medicine 05/13/16 07/07/22 documented as of this encounter
--- OUTSIDE RECORDS SUMMARY | 2024-11-30 14:17 | XMS_ITS | Encounter Summary ---
Author Organization [facility] Address [address] [place] [address] Care Team Providers Care Water Use Inspector Name Role Phone Marina Leo MD Primary Care Provider +1- [phone] Encounter Details Date Type Department Care Team (Late st Contact Info) Description 03/14/2019 Scanned Document [facility] 100 [facility] [address] [place] [address] Marina Leo MD 100 [facility] [address] [place] [address] Social History Tobacco Use Types Packs/Day Years [...] on filedocumented in this encounter Care Teams Water Use Inspector Relationship Specialty Start Date End Date Marina Leo MD [address] [place] [address] PCP - General Internal Medicine 05/13/16 07/07/22 documented as of this encounter
--- OUTSIDE RECORDS SUMMARY | 2024-11-30 14:17 | XMS_ITS | Encounter Summary ---
Author Organization [facility] Address [address] [place] [address] Care Team Providers Care Branch Credit Counselor Name Role Phone Marina Leo MD Primary Care Provider +1- [phone] Encounter Details Date Type Department Care Team (Late st Contact Info) Description 02/21/2019 Scanned Document [address] [place] [phone] General Surgery, Scan Social History Tobacco Use Types [...] on filedocumented in this encounter Care Teams Branch Credit Counselor Relationship Specialty Start Date End Date Marina Leo MD 100 [facility] [address] [place] [address] PCP - General Internal Medicine 05/13/16 07/07/22 documented as of this encounter
--- OUTSIDE RECORDS SUMMARY | 2024-11-30 14:17 | XMS_ITS | Encounter Summary ---
Author Organization [facility] Address [address] [place] [address] Care Team Providers Care Java Manager Name Role Phone Marina Leo MD Primary Care Provider +1- [phone] Encounter Details Date Type Department Care Team (Late st Contact Info) Description 02/23/2019 Scanned Document [facility] 100 [facility] [address] [place] [address] Marina Leo MD 100 [facility] [address] [place] [address] Social History Tobacco Use Types Packs/Day Years [...] on filedocumented in this encounter Care Teams Java Manager Relationship Specialty Start Date End Date Marina Leo MD [address] [place] [address] PCP - General Internal Medicine 05/13/16 07/07/22 documented as of this encounter
--- OUTSIDE RECORDS SUMMARY | 2024-11-30 14:17 | XMS_ITS | Encounter Summary ---
Author Organization [facility] Address [address] [place] [address] Care Team Providers Care Allergist/Immunologist Name Role Phone Marina Leo MD Primary Care Provider +1- [phone] Encounter Details Date Type Department Care Team (Late st Contact Info) Description 04/26/2019 Scanned Document [facility] 100 [facility] [address] [place] [phone] Marina Leo MD 100 [facility] [address] [place] [address] Social History Tobacco Use Types Packs/Day Years [...] on filedocumented in this encounter Care Teams Allergist/Immunologist Relationship Specialty Start Date End Date Marina Leo MD [address] [place] [address] PCP - General Internal Medicine 05/13/16 07/07/22 documented as of this encounter
--- OUTSIDE RECORDS SUMMARY | 2024-11-30 14:17 | XMS_ITS | Encounter Summary ---
Author Organization [facility] Address [address] [place] [address] Care Team Providers Care Cell Biology Scientist Name Role Phone Marina Leo MD Primary Care Provider +1- [phone] Encounter Details Date Type Department Care Team (Late st Contact Info) Description 05/11/2019 Scanned Document [address] [phone] Marina Leo MD [address] [place] [address] Social History Tobacco Use Types Packs/Day Years [...] on filedocumented in this encounter Care Teams Cell Biology Scientist Relationship Specialty Start Date End Date Marina Leo MD [address] [place] [address] [place] [address] PCP - General Internal Medicine 05/13/16 07/07/22 documented as of this encounter
--- OUTSIDE RECORDS SUMMARY | 2024-11-30 14:17 | XMS_ITS | Encounter Summary ---
Author Organization [facility] Address [address] [place] [address] Care Team Providers Care Adon Name Role Phone Marina Leo MD Primary Care Provider +1- [phone] Encounter Details Date Type Department Care Team (Late st Contact Info) Description 05/31/2019 Scanned Document [address] [phone] Marina Leo MD [address] [place] [address] Social History Tobacco Use Types Packs/Day Years [...] on filedocumented in this encounter Care Teams Adon Relationship Specialty Start Date End Date Marina Leo MD [address] [place] [address] [place] [address] PCP - General Internal Medicine 05/13/16 07/07/22 documented as of this encounter
== END 2024-11-30 13:51 | disposition home or self-care (01) ==
LOC: HO.HMCC 12:48
PROVIDERS: PCP Internal Medicine; Visit Provider Internal Medicine
DX: Z23 Encounter for immunization (principal)

== ENCOUNTER 2025-02-28 07:53 | Outpatient (AMB) | payer MEDICARE, MEDICAID, SELFPAY ==
--- OUTSIDE RECORDS SUMMARY | 2025-02-28 07:57 | XMS_ITS | Encounter Summary ---
Author Organization [facility] Address [address] [place] [address] Care Team Providers Care Gi Asst Name Role Phone Marina Leo MD Primary Care Provider +1- [phone] Encounter Details Date Type Department Care Team (Late st Contact Info) Description 09/04/2020 Scanned Document [address] [phone] Vascular Surgery, Scan Social History Tobacco Use [...] on filedocumented in this encounter Care Teams Gi Asst Relationship Specialty Start Date End Date Marina Leo MD 100 [facility] [address] [place] [address] PCP - General Internal Medicine 05/13/16 07/07/22 documented as of this encounter
--- OUTSIDE RECORDS SUMMARY | 2025-02-28 07:57 | XMS_ITS | Encounter Summary ---
Author Organization [facility] Address [address] [place], [place] [address] Care Team Providers Care Content Editor Name Role Phone Marina Leo MD Primary Care Provider +1- [phone] Encounter Details Date Type Department Care Team (Late st Contact Info) Description 07/08/2020 Scanned Document [address] [phone] Provider, Generic Social History Tobacco Use Types [...] on filedocumented in this encounter Care Teams Content Editor Relationship Specialty Start Date End Date Marina Leo MD 100 [facility] [address] [place] [address] PCP - General Internal Medicine 05/13/16 07/07/22 documented as of this encounter
--- OUTSIDE RECORDS SUMMARY | 2025-02-28 07:57 | XMS_ITS | Data Portability ---
Author Organization [place] [facility] Address [address] [place] [address] Care Team Providers Care Lithostripper Name Role Phone CONSTANCE PRESTON Primary Care Provider JERRI FLANAGAN OTHER Assessment Encounter Date Assessment Date Assessment LastModified by Organization Details LastModified Time 09/06/2020 09/06/2020 Time On Scene with Patient: 01:18:49 [email or web address] Not available 09/06/2020 13:51:35 09/07/2020 09/07/2020 no exam or dressing change performed [email or web address] Not available 09/07/2020 10:20:36 Plan of Treatment Reminders Order Date Submit Date Provider Last Modified By Organization Details Last Modified Time Details Appointments None record ed. Lab None record ed. Referral None record ed. Procedures None record ed. Surgeries None record ed. Imaging None record ed. Medication Orders None record ed. Patient TargetsNo targets recorded. Patient Instructions Encounter Date Encounter Id Patient Instructions Last Modified By Organization Details Last Modified Time 09/06/2020 [id number] infection after surgery: care instructions Not available 09/06/2020 13:31:46 you were seen today for assessment of right lower extremity surgical wound and wound dressing change. YOUR DRESSING SHOULD BE CHANGED DAILY. WE WILL CHANGE YOUR DRESSING 09/07/2020 IF VNA CANNOT BE ARRANGED BY YOUR VASCULAR SURGEON/PROVIDER. PER YOUR VASCULAR SURGEON: DRESSING CHANGE INSTRUCTIONS: 1. REMOVE OLD DRESSING AND PACKING 2. PUT ON STERILE GLOVES 3. FLUSH THE WOUND SITE WITH STERILE SALINE 4. PACK WITH IODOPHOR PACKING 5. PAINT WOUND WITH POVIDINE FROM CENTER OF WOUND TO OUTSIDE AREA 5. PUT 4X4 OR ABD PADS THEN KERLIX KEEP TAKING YOUR DOXYCYCLINE. DO NOT MISS ANY DOSES. WATCH FOR FEVER, SWELLING, REDNESS, ODOR TO EXUDATE, PUS OR CHANGE IN DRAINAGE, EXCESSIVE BLEEDING. GO TO ER. DO NOT WAIT. [facility]. You were seen today for treatment of a wound. Please seek immediate medical attention if you develop increased pain, redness, or swelling of your wound. Also, you should be evaluated if the wound becomes warm to the touch, or if there is a cloudy, yellow-brown discharge from the wound. There is always the possibility of a hidden tendon injury or foreign object in the wound. If you have problems moving your arm or leg, or if you see red streaks up the arm or leg, seek immediate medical attention. If you develop any new or worsening symptoms and need after hours care, please go to nearest ER and/or call 911. If you have additional concerns or develop a change in your condition between 8am-10pm, please call [facility] at [phone] to help navigate your care. Not available 09/06/2020 13:30:19 Reason for Referral None Reported. Procedures Surgical History Date Name Laterality Status Provider Name and Address Organization Details Recorded Time debridement completed Leesa Andres NP [address] [place], [address], [facility] 09/06/2020 12:43:10 revision of below knee amputation stump completed Leesa Andres NP [address] [place], [address], [facility] 09/06/2020 12:43:29 debridement of below knee amputation [place], [address], [facility] 09/06/2020 12:46:40 grafting to skin completed Leesa Andres NP [address] [place], [address], [facility] 09/06/2020 12:47:28 Imaging Results None recorded. Procedure Notes None recorded. Medical Equipment None Reported. Allergies Allergen ID Allergen Name Allergen Category Reaction Reaction Severity Criticality Documentation Date Start Date Code Code System Note Provider Name and Address Organization Details Recorded Time 20791102 morphine medicatio n Not available Not available Not available 09/06/2020 7052 RxNorm Leesa Andres NP [address], [place], [address], [place] [facility] 12:40:04 [id number] Product containin g penicilli n (product) medicatio n Not available Not available Not available 09/06/2020 46070 8001 SNOMED Leesa Andres, BEEF LUGGER [address], [place], [address], [place] [facility] 12:40:11 Medications Name Sig Start Date Stop Date Status Note LastModified by Organization Details LastModified Time tamsulosin 0.4 mg capsule TAKE 1 CAPSULE BY MOUTH EVERY DAY 09/06 completed Not Available Not Available Not Available doxycycline monohydrate 100 mg capsule TAKE 1 CAPSULE BY MOUTH TWICE A DAY FOR 14 DAYS active Not Available Not Available No t Available metoprolol tartrate 50 mg tablet TAKE 1 TABLET BY MOUTH EVERY DAY IN THE MORNING & 1/2 TABLET AT BEDTIME 09/06 completed Not Available Not Available Not Available docusate sodium 100 mg capsule TAKE 1 CAPSULE BY MOUTH TWO TIMES A DAY NEEDED FOR CONSTIPAT ION active Not Available Not Available No t Available gabapentin 300 mg capsule TAKE 3 CAPSULES BY MOUTH 4 TIMES A DAY active Not Available Not Available No t Available sertraline 50 mg tablet TAKE 1 TABLET BY MOUTH EVERY DAY active Not Available Not Available No t Available Doxycycline active Not Available Not A vailable Not Available oxycodone 10 mg tablet TAKE 1 TABLET BY MOUTH EVERY 4 HOURS NEEDED FOR PAIN, active Not Available Not Available No t Available Vitals Date Recorded Body temperature Respiratory rate Heart rate Oxygen saturation Systolic And Diastolic Provider Name and Address Organization Details Last Updated DateTime 1 95.9 [degF] 20 /min 80 /min 94 % 106/80 mm[Hg] Not Available [facility] 12:46:47 Date Recorded Heart rate Respiratory rate Body temperature Oxygen saturation Systolic And Diastolic Provider Name and Address Organization Details Last Updated DateTime 1 77 /min 16 /min 97.3 [degF] 96 % 110/72 mm[Hg] Not Available [facility] 1 10:10:14 Social History Question Answer Notes LastModified by Organizat ion Details LastModified Time Tobacco Smoking Status Former Smoker Leesa Andres, TIEN [address], [place], [address], [place] [facility] 09/06/2020 12:41:24 Do You Have An Advance Directive? No Information not available 09/06/2020 What Is Your Code Status? Full Code Information not available 09/06/2020 Within The Past 12 Months, Has It Happened That The Food You Bought Just Didn't Last And You Didn't Have Money To Get More. No Information not available 09/06/2020 Within The Past 12 Months, Have You Worried That Your Food Would Run Out Before You Got Money To Buy More. No Information not available 09/06/2020 Fall Risk: Do You Feel Unsteady When Standing Or Walking? Yes WC, Right Prosthetic Leg, Crutches, Walker Information not available 09/06/2020 We Know That How And When People Interact With Friends And Family Can Be Very Different From Person To Person. How Often Do You Have The Opportunity To See Or Talk To People That You Care About And Feel Close To? (Ex: Talking To Friends On The Phone Or Visiting Friends Or Family Or Going To Religious Or Club Meetings) 1 Or 2 Times Per Week Information not available 09/06/2020 Excessive Alcohol Or Drug Use Yes Thc Recreational Information not available 09/06/2020 We Know From Many Of Our Patients That Covering All Of Their Costs Can Be Difficult At Times. This Can Cause Stress And Impact Health. In The Past Year, Have You Been Unable To Get Any Of The Following When It Was Really Needed? No Information not available 09/06/2020 What Is Your Housing Situation Today? I Have Housing Information not available 09/06/2020 Would You Like Help Connecting To Resources? None Information not available 09/06/2020 How Much Tobacco Do You Smoke? 1 PPD Information not available 09/06/2020 How Many Years Have You Smoked Tobacco? 10 Information not available 09/06/2020 Sex: Unknown Functional Status None recorded. Mental Status None recorded. Family History Relationship Description Onset Age of this Age Resolved Age Notes LastModified by Organization Details LastModified Time Father No current problems or disability Not available 09/06 12:41:20 Mother No current problems or disability Not available 09/06 12:41:20 Medical History Condition Response Diabetes N Coronary Artery Disease Y Cancer N Stroke N Asthma Y COPD N Depression Y High Cholesterol N Pulmonary Embolism N Hypertension N Kidney Disease Y Past Encounters Encounter ID Performer Location Encounter Start Date Encounter Closed Date Diagnosis/Indication Diagnosis SNOMED-CT Code Diagnosis ICD10 Code Diagnosis IMO Codes Diagnosis Note [id number] Leesa Andres NP [facility] [address] [place] [address] 09/06/2020 12:36:18 09/10/2020 13:08:16 Wound cellulitis 515221369 L03.90 Overview/H istory: Patient is a 40 year old alert male who presents for evaluation of right BTK wound which requires daily dressings. His vascular surgeon changed the wound dressing yesterday in his office. Patient complex history includes sepsis/nec rotizing fasciitis for which he was hospitaliz ed in 2019. Patient required bilateral LE surgeries as a result. His right BTK wound revision/o peration 08/24/2020 was scheduled as patient suffered chronic pain. During a follow up visit this past wednesday, the wound a large hematoma was evacuated with a plan to have home VNA wound care assess and change dressings. Exam: Afebrile 95.9. HRR 80, S1, S2. Trachea midline, no JVD distention . Moist mucous membranes, no lymphadeno shell. LSCTA bilaterall y, no work of breathing. Abdomen obese, SNT, +BS x 4 No CVA tenderness , No suprapubic tenderness . Patient skin intact with exception of right open BTK amputee wound. There is a 8 cm longitudin al incision, the majority of which is closed. There is an open 3 cm area weeping garcia exudate. Exudate is non-malodo juan c. It is packed with iodophor. There is no erythema, no edema, no streaking. The open incision area is tender to touch. There is well healed scarring to lower left extremity. DDx considered , but not limited to:Wound abscess +Celluliti s considered , no streaking, no warmth to wound site, afebrileDV T considered , no evidence on exam Work up/Results : Exam, change wound dressing utilizing sterile technique. Wound irrigated with sterile saline. Iodophor packed into wound after irrigation ; wound painted from central area to periphery of wound with povidine/i odine and allowed to dry. sterile ABD dressing x 2 placed , then kerlix and Mediplex tape. Plan/Discu ssion:1. DH to follow 09/07/2020 in event VNA is not available to change dressing.2 . Contacted Mary at Vascular Surgeon office for dressing change preference s as above. They are working to get VNA in the home ROSHAN.3. Keep taking Doxycyclin e as prescribed . Provided after surgery care instructcorbin wilcox. Med rec completed Proper Personal Protective Equipment (PPE), including gloves, eye protection and masks were donned and doffed pebbles pereira and all equipment cleaned using approved technique with germicidal disposable wipes prior to and after care of this patient according to [facility]'s infection prevention protocols. Discussed ED precaution s. Patient and family able to reiterate. No questions at this time. In order to obtain further informatio n and compare any laboratory results/va lues, I have accessed old patient records. This informatio n was pertinent in my medical decision making today. Post-surgi marlys wound care [id number] Z48.01 [id number] PHOEBE PARSON NP [facility] [address] [place] [address] 09/07/2020 10:04:01 09/12/2020 03:52:51 Amputated below knee [id number] Z89.519 Health Concerns Section Related Observation LastModified by Organization Detai ls LastModified Time None Recorded Concern Status LastModified by Organization Details LastModified Time None Recorded Advance Directives Directive N: Payers Insurance Date Sequence Insurance Name Policy Number Policy Funez Covered Member ID Funez Member ID Guarantor Name 09/05/2020 1 *SELF PAY* Reginald Tripp [id number] Reginald Tripp 09/12/2020 1 [facility] Reginald Tripp [id number] Reginald Tripp 09/12/2020 1 [facility] [id number] Reginald Tripp [id number] Reginald Tripp Notes Date Note Type Note Provider Name and Address Organization Details Recorded Time 09/06/2020 text/html Patient is an alert 40 year old male who is new to and new to this provider. Patient was referred to through his Vascular Provider, Dr. Flanagan, who could not procure home wound care VNA to dress and assess right below the knee amputation wound. Patient had a revision surgery to the right limb due to pain, they were looking at whether it was bone fragments, hematoma. The original surgery was done 08/26/2020, follow up appointment was 2 days ago, where a large hematoma was evacuated. Patient was started on 2 week course of Doxycycline 100 mg BID. He is on day 2 of abx presently. The wound was dressed last yesterday in the Vascular surgeon office. Patient medical history significant for sepsis/necrotizin g fasciitis to bilateral LE. History also significant for depression, anxiety. Leesa Andres NP [address], [place], [address], [place] [facility] 09/06/2020 14:15:45 09/07/2020 text/html This is a 40-year-old male who was scheduled for routine dressing change today following a [facility] visit yesterday. After vitals were taken, patient and family determined that they no longer needed assistance with dressing changes as they have been providing this care routinely for this patient a few years. Family states they discussed venae services with the vascular surgery department last night and determined that nothing would be able to be set up until Wednesday. The patient and family stated they are able to go to vascular surgery on Wednesday for packing removal, dressing change and further instructions. PHOEBE PARSON NP [address], [place], [address], [place] [facility] 09/07/2020 10:21:10
--- OUTSIDE RECORDS SUMMARY | 2025-02-28 07:57 | XMS_ITS | Encounter Summary ---
Author Organization [facility] Address [address] [place] [address] Care Team Providers Care Patient Registration Clerk Name Role Phone Marina Leo MD Primary Care Provider +1- [phone] Encounter Details Date Type Department Care Team (Late st Contact Info) Description 05/17/2019 Scanned Document [address] [phone] Marina Leo MD [address] [place] [address] Social History Tobacco Use Types Packs/Day Years [...] on filedocumented in this encounter Care Teams Patient Registration Clerk Relationship Specialty Start Date End Date Marina Leo MD [address] [place] [address] [place] [address] PCP - General Internal Medicine 05/13/16 07/07/22 documented as of this encounter
--- OUTSIDE RECORDS SUMMARY | 2025-02-28 07:57 | XMS_ITS | Clinical Summary ---
Author Organization [facility] Address [address] [facility] [address] [place] [address] Phone Care Team Providers Care Pet Caretaker Name Role Phone Unavailable Primary Care Provider [...] It is not the complete legal health record.[facility]
--- OUTSIDE RECORDS SUMMARY | 2025-02-28 07:57 | XMS_ITS | Encounter Summary ---
Author Organization [facility] Address [address] [place] [address] Care Team Providers Care Senior Product Engineer Name Role Phone Marina Leo MD Primary Care Provider +1- [phone] Encounter Details Date Type Department Care Team (Late st Contact Info) Description 05/11/2019 Scanned Document [address] [phone] Marina Leo MD [address] [place] [address] Social History Tobacco Use Types Packs/Day Years [...] on filedocumented in this encounter Care Teams Senior Product Engineer Relationship Specialty Start Date End Date Marina Leo MD [address] [place] [address] [place] [address] PCP - General Internal Medicine 05/13/16 07/07/22 documented as of this encounter
--- OUTSIDE RECORDS SUMMARY | 2025-02-28 07:57 | XMS_ITS | Encounter Summary ---
Author Organization Formerly [facility] Address [address] [place] [address] Care Team Providers Care Ore Miner Name Role Phone Marina Leo MD Primary Care Provider +1- [phone] Encounter Details Date Type Department Care Team (Late st Contact Info) Description 12/22/2018 Scanned Document [address] [phone] Pulmonary, Scan Social History Tobacco Use Types [...] on filedocumented in this encounter Care Teams Ore Miner Relationship Specialty Start Date End Date Marina Leo MD 100 [facility] [address] [place] [address] PCP - General Internal Medicine 05/13/16 07/07/22 documented as of this encounter
--- OUTSIDE RECORDS SUMMARY | 2025-02-28 07:57 | XMS_ITS | Encounter Summary ---
Author Organization [facility] Address [address] [place] [address] Care Team Providers Care Housekeeper Head Name Role Phone Marina Leo MD Primary Care Provider +1- [phone] Encounter Details Date Type Department Care Team (Late st Contact Info) Description 11/16/2019 Scanned Document [address] [phone] Marina Leo MD [address] [place] [address] Social History Tobacco Use Types Packs/Day Years [...] on filedocumented in this encounter Care Teams Housekeeper Head Relationship Specialty Start Date End Date Marina Leo MD [address] [place] [address] [place] [address] PCP - General Internal Medicine 05/13/16 07/07/22 documented as of this encounter
--- OUTSIDE RECORDS SUMMARY | 2025-02-28 07:57 | XMS_ITS | Clinical Summary ---
Author Organization [facility] Prior to 07/29/24 Address [address] [place] [address] Care Team Providers Care Fur Comber Name Role Phone Carol Branham MD Primary Care Provider [phone] Allergies No known active allergies Medications Medication [...] age to complete this topic Care Teams Fur Comber Relationship Specialty Start Date End Date Carol Branham MD [facility] [place] [address] PCP - General Internal Medicine 08/18/15
--- OUTSIDE RECORDS SUMMARY | 2025-02-28 07:57 | XMS_ITS | Encounter Summary ---
Author Organization [facility] Address [address] [place] [address] Care Team Providers Care Store Leader Name Role Phone Marina Leo MD Primary Care Provider [phone]- [phone] Encounter Details Date Type Department Care Team (Late st Contact Info) Description 01/02/2019 Scanned Document [address] [phone] Pulmonary, Scan Social History Tobacco Use Types [...] on filedocumented in this encounter Care Teams Store Leader Relationship Specialty Start Date End Date Marina Leo MD 100 [facility] [address] [place] [address] PCP - General Internal Medicine 05/13/16 07/07/22 documented as of this encounter
--- OUTSIDE RECORDS SUMMARY | 2025-02-28 07:57 | XMS_ITS | Encounter Summary ---
Author Organization Formerly [facility] Address [address] [place] [address] Care Team Providers Care Patent Law Specialist Name Role Phone Marina Leo MD Primary Care Provider [phone]- [phone] Encounter Details Date Type Department Care Team (Late st Contact Info) Description 05/05/2019 Scanned Document [address] [phone] Marina Leo MD [address] [place] [address] Social History Tobacco Use Types Packs/Day Years [...] on filedocumented in this encounter Care Teams Patent Law Specialist Relationship Specialty Start Date End Date Marina Leo MD [address] [place] [address] [place] [address] PCP - General Internal Medicine 05/13/16 07/07/22 documented as of this encounter
--- OUTSIDE RECORDS SUMMARY | 2025-02-28 07:57 | XMS_ITS | Encounter Summary ---
Author Organization [facility] Address [address] [place] [address] Care Team Providers Care Drafter Civil Engineering Name Role Phone Marina Leo MD Primary Care Provider [phone]- [phone] Encounter Details Date Type Department Care Team (Late st Contact Info) Description 05/11/2019 Scanned Document [address] [phone] Infectious Diseases, Scan Social History Tobacco Use [...] on filedocumented in this encounter Care Teams Drafter Civil Engineering Relationship Specialty Start Date End Date Marina Leo MD 100 [facility] [address] [place] [address] PCP - General Internal Medicine 05/13/16 07/07/22 documented as of this encounter
--- OUTSIDE RECORDS SUMMARY | 2025-02-28 07:58 | XMS_ITS | Encounter Summary ---
Author Organization [facility] Address [address] [place] [address] Care Team Providers Care Parking Patroller Name Role Phone Marina Leo MD Primary Care Provider +1- [phone] Encounter Details Date Type Department Care Team (Late st Contact Info) Description 04/24/2019 Scanned Document [facility] 100 [facility] [address] [place] [address] Marina Leo MD 100 [facility] [address] [place] [address] Social History Tobacco Use Types Packs/Day Years [...] on filedocumented in this encounter Care Teams Parking Patroller Relationship Specialty Start Date End Date Marina Leo MD [address] [place] [address] PCP - General Internal Medicine 05/13/16 07/07/22 documented as of this encounter
--- OUTSIDE RECORDS SUMMARY | 2025-02-28 07:58 | XMS_ITS | Encounter Summary ---
Author Organization [facility] Address [address] [place] [address] Care Team Providers Care Pick Pulling Machine Operator Name Role Phone Marina Leo MD Primary Care Provider [phone]- [phone] Encounter Details Date Type Department Care Team (Late st Contact Info) Description 06/01/2019 Scanned Document [address] [phone] Marina Leo MD [address] [place] [address] Social History Tobacco Use Types Packs/Day Years [...] on filedocumented in this encounter Care Teams Pick Pulling Machine Operator Relationship Specialty Start Date End Date Marina Leo MD [address] [place] [address] [place] [address] PCP - General Internal Medicine 05/13/16 07/07/22 documented as of this encounter
--- OUTSIDE RECORDS SUMMARY | 2025-02-28 07:58 | XMS_ITS | Encounter Summary ---
Author Organization [facility] Address [address] [place] [address] Care Team Providers Care Photo Engraver Name Role Phone Marina Leo MD Primary Care Provider +1- [phone] Encounter Details Date Type Department Care Team (Late st Contact Info) Description 02/21/2019 Scanned Document [address] [place] [phone] General Surgery, Scan Social History Tobacco Use [...] on filedocumented in this encounter Care Teams Photo Engraver Relationship Specialty Start Date End Date Marina Leo MD 100 [facility] [address] [place] [address] PCP - General Internal Medicine 05/13/16 07/07/22 documented as of this encounter
--- OUTSIDE RECORDS SUMMARY | 2025-02-28 07:58 | XMS_ITS | Encounter Summary ---
Author Organization [facility] Address [address] [place] [address] Care Team Providers Care Concrete Smoother Name Role Phone Marina Leo MD Primary Care Provider +1- [phone] Encounter Details Date Type Department Care Team (Late st Contact Info) Description 12/24/2018 Scanned Document [address] [phone] Cardiology, Scan Social History Tobacco Use Types [...] on filedocumented in this encounter Care Teams Concrete Smoother Relationship Specialty Start Date End Date Marina Leo MD 100 [facility] [address] [place] [address] PCP - General Internal Medicine 05/13/16 07/07/22 documented as of this encounter
--- OUTSIDE RECORDS SUMMARY | 2025-02-28 07:58 | XMS_ITS | Encounter Summary ---
Author Organization [facility] Address [address] [place] [address] Care Team Providers Care Cartography Professor Name Role Phone Marina Leo MD Primary Care Provider +1- [phone] Encounter Details Date Type Department Care Team (Late st Contact Info) Description 04/26/2019 Scanned Document [facility] 100 [facility] [address] [place] [address] Marina Leo MD 100 [facility] [address] [place] [address] Social History Tobacco Use Types Packs/Day Years [...] on filedocumented in this encounter Care Teams Cartography Professor Relationship Specialty Start Date End Date Marina Leo MD [address] [place] [address] PCP - General Internal Medicine 05/13/16 07/07/22 documented as of this encounter
--- OUTSIDE RECORDS SUMMARY | 2025-02-28 07:58 | XMS_ITS | Encounter Summary ---
Author Organization [facility] Address [address] [place] [address] Care Team Providers Care Instructional Paraprofessional Name Role Phone Marina Leo MD Primary Care Provider [phone]- [phone] Encounter Details Date Type Department Care Team (Late st Contact Info) Description 06/26/2019 Scanned Document [address] [phone] Marina Leo MD [address] [place] [address] Social History Tobacco Use Types Packs/Day Years [...] on filedocumented in this encounter Care Teams Instructional Paraprofessional Relationship Specialty Start Date End Date Marina Leo MD [address] [place] [address] [place] [address] PCP - General Internal Medicine 05/13/16 07/07/22 documented as of this encounter
--- OUTSIDE RECORDS SUMMARY | 2025-02-28 07:58 | XMS_ITS | Encounter Summary ---
Author Organization [facility] Address [address] [place] [address] Care Team Providers Care Therapeutic Strategy Lead Name Role Phone Keyonna Branham MD Primary Care Provider [phone] Marina Leo MD Primary Care Provider +- [phone] Encounter Details Date Type Department Care Team (Late st Contact Info) Description 08/18/2015 Scanned Document [address] [place] [address] [phone] Provider, Generic Social History Tobacco [...] on filedocumented in this encounter Care Teams Therapeutic Strategy Lead Relationship Specialty Start Date End Date Keyonna Branham MD [address] [facility] [address] [place] [address] PCP - General 11/12/14 05/12/16 Marina Leo MD [address] [place] [address] PCP - General Internal Medicine 05/13/16 07/07/22 documented as of this encounter
--- OUTSIDE RECORDS SUMMARY | 2025-02-28 07:58 | XMS_ITS | Encounter Summary ---
Author Organization [facility] Address [address] [place] [address] Care Team Providers Care Boiler Mechanic Name Role Phone Marina Leo MD Primary Care Provider +1- [phone] Encounter Details Date Type Department Care Team (Late st Contact Info) Description 02/21/2019 Scanned Document [address] [place] [phone] Vascular Surgery, Scan Social History Tobacco Use [...] on filedocumented in this encounter Care Teams Boiler Mechanic Relationship Specialty Start Date End Date Marina Leo MD 100 [facility] [address] [place] [address] PCP - General Internal Medicine 05/13/16 07/07/22 documented as of this encounter
--- OUTSIDE RECORDS SUMMARY | 2025-02-28 07:58 | XMS_ITS | Encounter Summary ---
Author Organization [facility] Address [address] [place] [address] Care Team Providers Care Crew Mess Attendant Name Role Phone Marina Leo MD Primary Care Provider +1- [phone] Encounter Details Date Type Department Care Team (Late st Contact Info) Description 09/07/2020 Scanned Document [address] [phone] Family Medicine, Scan Social History Tobacco Use [...] on filedocumented in this encounter Care Teams Crew Mess Attendant Relationship Specialty Start Date End Date Marina Leo MD 100 [facility] [address] [place] [address] PCP - General Internal Medicine 05/13/16 07/07/22 documented as of this encounter
--- OUTSIDE RECORDS SUMMARY | 2025-02-28 07:58 | XMS_ITS | Encounter Summary ---
Author Organization [facility] Address [address] [place] [address] Care Team Providers Care Gas Manager Name Role Phone Marina Leo MD Primary Care Provider +1- [phone] Encounter Details Date Type Department Care Team (Late st Contact Info) Description 03/14/[address] [facility] 100 [facility] [address] [place] [address] Marina Leo MD 100 [facility] [address] [place] [address] Social History Tobacco Use Types Packs/Day Years [...] on filedocumented in this encounter Care Teams Gas Manager Relationship Specialty Start Date End Date Marina Leo MD [address] [place] [address] PCP - General Internal Medicine 05/13/16 07/07/22 documented as of this encounter
--- OUTSIDE RECORDS SUMMARY | 2025-02-28 07:58 | XMS_ITS | Encounter Summary ---
Author Organization [facility] Address [address] [place], [place] [address] Care Team Providers Care Camera Control Operator Name Role Phone Marina Leo MD Primary Care Provider +1- [phone] Encounter Details Date Type Department Care Team (Late st Contact Info) Description 02/23/2019 Scanned Document [facility] 100 [facility] [address] [place] [address] Marina Leo MD 100 [facility] [address] [place] [address] Social History Tobacco Use Types Packs/Day Years [...] on filedocumented in this encounter Care Teams Camera Control Operator Relationship Specialty Start Date End Date Marina Leo MD [address] [place] [address] PCP - General Internal Medicine 05/13/16 07/07/22 documented as of this encounter
--- OUTSIDE RECORDS SUMMARY | 2025-02-28 07:58 | XMS_ITS | Encounter Summary ---
Author Organization [facility] Address [address] [place] [address] Care Team Providers Care Biomedical Instrument Technician Name Role Phone Keyonna Branham MD Primary Care Provider Marina Leo MD Primary Care Provider +- [phone] Encounter Details Date Type Department Care Team (Late st Contact Info) Description 06/29/2015 Scanned Document [address] [phone] Keyonna Branham MD [address] [place] [address] Social History Tobacco Use Types Packs/Day Years [...] on filedocumented in this encounter Care Teams Biomedical Instrument Technician Relationship Specialty Start Date End Date Keyonna Branham MD [address] [place] [address] PCP - General 11/12/14 05/12/16 Marina Leo MD [address] [place] [address] PCP - General Internal Medicine 05/13/16 07/07/22 documented as of this encounter
--- OUTSIDE RECORDS SUMMARY | 2025-02-28 07:58 | XMS_ITS | Encounter Summary ---
Author Organization [facility] Address [address] [place] [address] Care Team Providers Care Cattle Dealer Name Role Phone Keyonna Branham MD Primary Care Provider [phone] Marina Leo MD Primary Care Provider +- [phone] Encounter Details Date Type Department Care Team (Late st Contact Info) Description 05/31/2015 Scanned Document [address] [address] Provider, Generic Social History Tobacco [...] on filedocumented in this encounter Care Teams Cattle Dealer Relationship Specialty Start Date End Date Keyonna Branham MD 136 [facility] [address] [place] [address] PCP - General 11/12/14 05/12/16 Marina Leo MD [address] [place] [address] PCP - General Internal Medicine 05/13/16 07/07/22 documented as of this encounter
--- OUTSIDE RECORDS SUMMARY | 2025-02-28 07:58 | XMS_ITS | Encounter Summary ---
Author Organization [facility] Address [address] [place] [address] Care Team Providers Care Switch Tender Name Role Phone Marina Leo MD Primary Care Provider +1- [phone] Encounter Details Date Type Department Care Team (Late st Contact Info) Description 05/31/2019 Scanned Document [address] [phone] Marina Leo MD [address] [place] [address] Social History Tobacco Use Types Packs/Day Years [...] on filedocumented in this encounter Care Teams Switch Tender Relationship Specialty Start Date End Date Marina Leo MD [address] [place] [address] [place] [address] PCP - General Internal Medicine 05/13/16 07/07/22 documented as of this encounter
--- OUTSIDE RECORDS SUMMARY | 2025-02-28 07:58 | XMS_ITS | Encounter Summary ---
Author Organization [facility] Address [address] [place] [address] Care Team Providers Care Survey Analyst Name Role Phone Marina Leo MD Primary Care Provider +1- [phone] Encounter Details Date Type Department Care Team (Late st Contact Info) Description 06/30/2019 Scanned Document [address] [phone] Marina Leo MD [address] [place] [address] Social History Tobacco Use Types Packs/Day Years [...] on filedocumented in this encounter Care Teams Survey Analyst Relationship Specialty Start Date End Date Marina Leo MD [address] [place] [address] PCP - General Internal Medicine 05/13/16 07/07/22 documented as of this encounter
--- OUTSIDE RECORDS SUMMARY | 2025-02-28 07:58 | XMS_ITS | Encounter Summary ---
Author Organization [facility] Address [address] [place] [address] Care Team Providers Care Ecommerce Manager Name Role Phone Marina Leo MD Primary Care Provider +1- [phone] Encounter Details Date Type Department Care Team (Late st Contact Info) Description 12/26/2018 Scanned Document [address] [phone] Cardiology, Scan Social History Tobacco Use Types [...] on filedocumented in this encounter Care Teams Ecommerce Manager Relationship Specialty Start Date End Date Marina Leo MD 100 [facility] [address] [place] [address] PCP - General Internal Medicine 05/13/16 07/07/22 documented as of this encounter
--- OUTSIDE RECORDS SUMMARY | 2025-02-28 07:58 | XMS_ITS | Encounter Summary ---
Author Organization [facility] Address [address] [place], [place] [address] Care Team Providers Care Clerk Manager Name Role Phone Marina Leo MD Primary Care Provider +1- [phone] Encounter Details Date Type Department Care Team (Late st Contact Info) Description 09/06/2020 Scanned Document [address] [phone] Provider, Generic Social History Tobacco Use Types [...] on filedocumented in this encounter Care Teams Clerk Manager Relationship Specialty Start Date End Date Marina Leo MD 100 [facility] [address] [place] [address] PCP - General Internal Medicine 05/13/16 07/07/22 documented as of this encounter
--- OUTSIDE RECORDS SUMMARY | 2025-02-28 07:58 | XMS_ITS | Clinical Summary ---
Author Organization [facility] Address [address] [place] [address] Care Team Providers Care Boat Deckhand Name Role Phone Unavailable Primary Care Provider [...] 09/29/2024 COVID-19 Vaccine (2024- season) 2024 Insurance [employer]
--- OUTSIDE RECORDS SUMMARY | 2025-02-28 07:58 | XMS_ITS | Encounter Summary ---
Author Organization [facility] Address [address] [place] [address] Care Team Providers Care Milk Pickup Driver Name Role Phone Marina Leo MD Primary Care Provider +1- [phone] Encounter Details Date Type Department Care Team (Late st Contact Info) Description 12/22/2018 Scanned Document [address] [phone] Provider, Generic Social History Tobacco Use Types [...] on filedocumented in this encounter Care Teams Milk Pickup Driver Relationship Specialty Start Date End Date Marina Leo MD 100 [facility] [address] [place] [address] PCP - General Internal Medicine 05/13/16 07/07/22 documented as of this encounter
--- OUTSIDE RECORDS SUMMARY | 2025-02-28 07:58 | XMS_ITS | Encounter Summary ---
Author Organization [facility] Address [address] [place] [address] Care Team Providers Care Licensed Tax Consultant Name Role Phone Marina Leo MD Primary Care Provider +1- [phone] Encounter Details Date Type Department Care Team (Late st Contact Info) Description 03/23/2019 Scanned Document [facility] 100 [facility] [address] [place] [address] Marina Leo MD 100 [facility] [address] [place] [address] Social History Tobacco Use Types Packs/Day Years [...] on filedocumented in this encounter Care Teams Licensed Tax Consultant Relationship Specialty Start Date End Date Marina Leo MD [address] [place] [address] PCP - General Internal Medicine 05/13/16 07/07/22 documented as of this encounter
--- OUTSIDE RECORDS SUMMARY | 2025-02-28 07:58 | XMS_ITS | Encounter Summary ---
Author Organization [facility] Address [address] [place] [address] Care Team Providers Care Landfill Gas Technician Name Role Phone Marina Leo MD Primary Care Provider +1- [phone] Encounter Details Date Type Department Care Team (Late st Contact Info) Description 04/28/2019 Scanned Document [address] [phone] Provider, Generic Social History Tobacco Use Types [...] on filedocumented in this encounter Care Teams Landfill Gas Technician Relationship Specialty Start Date End Date Marina Leo MD 100 [facility] [address] [place] [address] PCP - General Internal Medicine 05/13/16 07/07/22 documented as of this encounter
--- NOTE | 2025-02-28 08:00 | A.OFFVIS_ITS ---
Intake Visit Reasons: low testosterone/UA/PVR(SET) Intake Note: Patient is present for LOW TESTOSTERONE/UA/PVR Urology Medication:NONE Antibiotic Allergy:NONE Blood ThinnerASPIRIN TODAY'S PVR:75ML'S Surgical Services Assistant Required: No Allergies environmental allergies Allergy (Intermediate, Verified 02/28/25 09:07) Sneezing Medication List - Last Reconciled 02/28/25 by SAMUEL Mcduffie-ALEX albuterol sulfate 90 mcg/actuation (Ventolin HFA) 2 puffs inhalation Q4-6H PRN aspirin (Adult Low Dose Aspirin) 81 mg PO DAILY atomoxetine 80 mg PO QAM bupropion HCl SR 100 mg PO QAM [custom liner for above knee prosthesis As directed. custom liner for above knee prosthesis] desonide 0.05% 1 appl topical BID gabapentin 900 mg PO TID Prosthetic socket insert liner, above knee As directed [Right prosthetic knee As directed NS] sertraline 100 mg PO DAILY HPI Comments Details: Reginald is a 45-year-old male patient of Dr. Merlos. He has a past medical history of hypogonadism, ADD, vitamin-D deficiency, dyslipidemia, necrotizing fasciitis status post [id number] right amputee, phantom pain after amputation of lower extremity, septic shock, PTSD, obesity, and eczema. He presents to the office today as a new patient for low libido and hypogonadism. In discussion with the patient today he reports shortly after his amputation in 2019 after necrotizing fasciitis he started experiencing issues with low libido, generalized fatigue, and other health issues. He reports having followed up with his PCP at which time labs were drawn for further assessment evaluation and recommendations were made for urology referral for further assessment evaluation. These results were reviewed and communicated with the patient today. Testosterone: 08/22 262, 11/22 175, 02/22 229 We did discuss potential causes of hypogonadism, low libido, and erectile dysfunction. We did discussed further treatment options and risks and benefits of these treatment options. He does report a previous history of recreational drug use in the past. He denies any previous trauma. He denies any previous anabolic steroid use. He denies any bothersome urinary issues. He denies urinary urgency, urinary frequency, incontinence, nocturia, hematuria, dysuria, foul smelling urine, changes to urinary stream, flank pain, fever, and or chills. He is happy with his current voiding parameters. In office urinalysis results reviewed with the patient today. He reports having followed up with his PCP and was due to undergo sleep study however given other issues needed to cancel his appointment. Will attempt to obtain home sleep study. He also discusses having recently started GLP 1 to assist with weight loss. We did review at length potential causes of hypogonadism as well as further treatment options and risks and benefits of these treatment options. He does have 2 children ages 10 and 12 years old. All questions were answered. He otherwise offers no other issues or concerns at this time. [facility] Medical History Disturbed sleep rhythm Loud snoring Excessive daytime sleepiness Low testosterone in male Loss of libido ADD (attention deficit disorder) Impaired fasting glucose Vitamin D deficiency Mixed dyslipidemia History of necrotizing fasciitis Phantom pain after amputation of lower extremity Open wound of left knee, leg and ankle with tendon involvement Complicated open wound of right thigh Right above-knee amputee History of septic shock PTSD (post-traumatic stress disorder) Morbid obesity Dyshidrotic eczema Surgical History History of fasciotomy Social History Housing: House Patient Tobacco Use Status: Former Tobacco user e-Cigarette/Vaping Use: Never Used service: No Current occupational status: disabled Current occupational exposures/hazards: No Cognitive needs: No Hearing needs: No Vision needs: No Review of Systems Const All systems reviewed & are unremarkable except as noted in HPI and below Physical Exam Const General: cooperative, healthy appearing, comfortable, no acute distress, well developed, alert and awake Nutritional Appearance: overweight Orientation/consciousness: patient oriented x3 Limitations: other limitations (Right lower limb prostatic) HEENT Head: Yes normal to inspection, Yes normocephalic and Yes atraumatic Ears: hearing grossly normal bilaterally Eyes General: appearance normal, both eyes and all related structures Neck Neck: Yes normal visual inspection and Yes trachea midline Chest Chest palpation & inspection: normal inspection of the chest Resp Effort & Inspection: normal respiratory effort and able to speak in complete sentences Cardio Rate: regular rate GI Inspection: Yes normal to inspection General: Yes no CVA tenderness Back/Spine/Pelvis Back: no CVA tenderness Neuro General: patient oriented x3 Extrem Other: As per HPI Psych Appearance: grossly normal and well kempt Mental Status: mental status grossly normal Speech and movement: Normal speech and movement present and Clear speech present Affect: normal affect Attitude: cooperative Thought process: Normal thought process present Thought content: Normal thought content present Insight: Fair insight present (Psych) Judgement: Fair judgement present (Psych) Office Procedures Post Void Residual Post Residual Void Post Void Residual (PVR): 75 [id number] Void Residual by ultrasound Results AMB Urinalysis, Automated UA Leukoctes 0 Serena/uL Last Edit by HÉCTOR Devlin on 02/28/25 08:16 UA Nitrite Negative Last Edit by HÉCTOR Devlin on 02/28/25 08:16 UA Urobilinogen 0.2 mg/dL Last Edit by Lou Alonzo CCM on 02/28/25 08:1 6 UA Protein 100 mg/dL Last Edit by Lou Alonzo CCM on 02/28/25 08:16 UA pH 6.0 Last Edit by Lou Alonzo CCM on 02/28/25 08:16 UA Blood 0 Jac/uL Last Edit by HÉCTOR Devlin on 02/28/25 08:16 UA Specific [place] 1.030 Last Edit by Lou Alonzo CCM on 02/28/25 08: 16 UA Ketone Negative Last Edit by Lou Alonzo CCM on 02/28/25 08:16 UA Bilirubin 0 mg/dL Last Edit by Lou Alonzo CCM on 02/28/25 08:16 UA Glucose 0 mg/dL Last Edit by Lou Alonzo CCM on 02/28/25 08:16 Results Reviewed Results Reviewed: Laboratory Last Values Urine pH (Auto) 6.0 02/28/25 08:16 Specific [place] (Auto) 1.030 02/28/25 08:16 Urine Protein (Auto) 100 mg/dL 02/28/25 08:16 Glucose (UA)(Auto) 0 mg/dL 02/28/25 08:16 Urine Ketones (Auto) Negative 02/28/25 08:16 Urine Blood (Auto) 0 Jac/uL 02/28/25 08:16 Urine Nitrite (Auto) Negative 02/28/25 08:16 Urine Bilirubin (Auto) 0 mg/dL 02/28/25 08:16 Urine Urobilinogen (Auto) 0.2 mg/dL 02/28/25 08:16 Leukocyte Esterase (Auto) 0 Serena/uL 02/28/25 08:16 Assessment & Plan Assessment & Plan (1) Excessive daytime sleepiness: Code(s): G47.19 - Other hypersomnia Category: Medical (2) Loud snoring: Code(s): R06.83 - Snoring Category: Medical (3) Disturbed sleep rhythm: Code(s): G47.20 - Circadian rhythm sleep disorder, unspecified type Category: Medical (4) Low testosterone in male: Code(s): R79.89 - Other specified abnormal findings of blood chemistry Category: Medical (5) Loss of libido: Code(s): R68.82 - Decreased libido Category: Medical Plan In office urinalysis results with the patient today; as noted above. Previous testosterone results with the patient today; as noted above. Will obtain home sleep study for further assessment evaluation. We did discussed at length potential causes of low libido, ED, and hypogonadism; we reviewed further treatment options and risks and benefits of these treatment options. He currently denies any bothersome urinary issues or concerns. Reports be happy with current voiding parameters. Will obtain LH, prolactin, estradiol, FSH, PSA, SHBG, testosterone, and hemoglobin A1c for further assessment evaluation. All questions were answered. We did discussed lifestyle modifications to assist with these urological conditions We discussed importance of weight loss in relation to urological health as well as overall health and well-being. Start low-dose Cialis as discussed and prescribed. Follow-up in 1-3 months with labs; or sooner with any issues, concerns, and or questions. Orders: Orders Lutenizing Hormone Today R79. - Other specified abnormal findings of blood chemistry Prolactin Today R79.89 - Other specified abnormal findings of blood chemistry Estrad Free (Tot Ultra + Free) Today R79.89 - Other specified abnormal findings of blood chemistry AMB Urinalysis Automated Today Z13.9 - Encounter for screening, unspecified Follicle Stimulating Hormone Today R79.89 - Other specified abnormal findings of blood chemistry Prostate Specific Antigen Today R79.89 - Other specified abnormal findings of blood chemistry Sex Hormone Binding Globulin Today R79.89 - Other specified abnormal findings of blood chemistry Testosterone, Free/Total Today R79.89 - Other specified abnormal findings of blood chemistry Hemoglobin A1c Today E11.9 - Type 2 diabetes mellitus without complications, R79.89 - Other specified abnormal findings of blood chemistry RT home sleep study Today G47.19 - Other hypersomnia, G47.20 - Circadian rhythm sleep disorder, unspecified type, R06.83 - Snoring Medications: New tadalafil (Cialis) [id number] [facility] GroupGDRX Member [id number] 5 mg PO DAILY 90 tabs 1RF BPH 90 days Patient Instructions: The patient had an opportunity to ask questions regarding the treatment plan. All questions were answered. Physical exam, labs, and imaging were discussed and reviewed in detail. As well as risks, benefits, and discussion of treatment choices. No major barriers to understanding were identified. The patient expressed understanding and agreement with the above treatment plan. The patient was made aware they should contact our office by phone for worsening of their current condition, the appearance of new symptoms, or with any questions or concerns. Compliance is encouraged with any medications and follow up testing that is ordered. It is a privilege to be allowed the opportunity to participate in? your urological care.? Again, if you have any questions or concerns If you have any questions or concerns please do not hesitate to contact me. The office is [phone]. This note is constructed using voice recognition software. While every effort has been made to ensure accuracy ground layer errors may have been included. Yours sincerely, HEMANTH Mcduffie Coding Level of Care Code New Pt Level 4 (45738) Diagnoses Excessive daytime sleepiness G47.19 Loud snoring R06.83 Disturbed sleep rhythm G47.20 Low testosterone in male R79.89 Loss of libido R68.82 CPT Codes Post Residual Void - PVR CPT Code: 41669-Jiqb Void Residual by ultrasound ([id number])
== END 2025-02-28 08:58 | disposition home or self-care (01) ==
LOC: HO.HUSH 07:55
PROVIDERS: PCP Internal Medicine; Visit Provider Nurse Practitioner Family
DX: G47.19 Other hypersomnia (principal); R06.83 Snoring; G47.20 Circadian rhythm sleep disorder, unspecified type; R79.89 Other specified abnormal findings of blood chemistry; R68.82 Decreased libido; Z13.9 Encounter for screening, unspecified
CPT/HCPCS: 99204

== ENCOUNTER → 2025-02-28 07:53 | Outpatient (BNVA) | payer MEDICARE, MEDICAID, SELFPAY | PROVIDERS: PCP Internal Medicine; Visit Provider Nurse Practitioner Family | DX: R68.82 Decreased libido (principal); R79.89 Other specified abnormal findings of blood chemistry; G47.19 Other hypersomnia; R06.83 Snoring; G47.20 Circadian rhythm sleep disorder, unspecified type | CPT/HCPCS: 51798; 81003; 99202 ==